=== PATIENT | male | born 1955 | race Caucasian/White ===

== ENCOUNTER 2019-03-21 21:05 | Emergency (ER) | payer MEDICARE, OTHER ==
[~2019-03-21] VITALS: Ht 170.2 cm; Wt 72.6 kg
[2019-03-21 21:24] VITALS: BP 146/90
[2019-03-21] MEDS ORDERED: ACETAMINOPHEN ES 500 MG TABLET ONE (21:49)
[2019-03-21] MEDS: ACETAMINOPHEN 325 MG TABLET PO ONE (21:52)
== END 2019-03-21 22:54 | disposition home or self-care (01) ==
LOC: ER 21:10
DX: M25.561 Pain in right knee (principal); M25.521 Pain in right elbow; M54.6 Pain in thoracic spine; I10 Essential (primary) hypertension; F17.200 Nicotine dependence, unspecified, uncomplicated; Y08.89XA Assault by other specified means, initial encounter; Y93.89 Activity, other specified; Y92.89 Other specified places as the place of occurrence of the external cause; Y99.8 Other external cause status
CPT/HCPCS: 72070-TC; 73080-TC; 73564-TC

== ENCOUNTER 2019-09-01 18:20 | Inpatient (IN) | payer MEDICARE, OTHER ==
[~2019-09-01] VITALS: Ht 170.2 cm; Wt 74.0 kg
--- NOTE | 2019-09-01 18:39 | NUR ---
patient bibra from home, c/o worsening sob x 3 days. On room air, breathing evenly and unlabored. connected to the monitor accordingly. Kept comfortable, will continue to monitor accordingly.
[2019-09-01 18:40] LABS: BASOPHILS # (AUTO) 0.1 /CMM (0.0-0.2); BASOPHILS % (AUTO) 0.7 % (0.0-2.0); EOSINOPHILS % (AUTO) 2.4 % (0.0-6.0); HEMATOCRIT 45 % (39-51); HEMOGLOBIN 15.4 g/dL (13.5-17.5); LYMPHOCYTES # (AUTO) 0.9 /CMM (0.8-4.8); LYMPHOCYTES % (AUTO) 10.9 % (20.0-44.0); MEAN CORPUSCULAR HGB CONC 34 g/dl (31.0-36.0); MEAN CORPUSCULAR VOLUME 92 fL (80-96); MONOCYTES # (AUTO) 0.9 /CMM (0.1-1.30); MONOCYTES % (AUTO) 10.4 % (2.0-12.0); NEUTROPHILS # (AUTO) 6.4 /CMM (1.8-8.9); NEUTROPHILS % (AUTO) 75.6 % (43.0-81.0); PLATELET COUNT (AUTO) 305 /CMM (150-450); WHITE BLOOD COUNT (AUTO) 8.5 K/uL (4.3-11.0)
--- NOTE | 2019-09-01 18:40 | NUR ---
blood drawned and sent to lab. IV access initiated.
--- NOTE | 2019-09-01 18:42 | NUR ---
radha at bedside for x-ray
[2019-09-01 18:50] LABS: CALCIUM, SERUM 8.7 mg/dL (8.5-10.1); CARBON DIOXIDE 26 mmol/L (21-32); CHLORIDE 106 mmol/L (98-107); CREATININE 1.2 mg/dL (0.6-1.3); GLUCOSE 130 mg/dL (74-106); POTASSIUM 3.7 mmol/L (3.5-5.1); SODIUM SERUM 140 mmol/L (136-145); UREA NITROGEN, BLOOD 15 mg/dL (7-18)
[2019-09-01 19:04] LABS: B-TYPE NATRIURETIC PEPTIDE 85 PG/ML (0-125)
--- NOTE | 2019-09-01 19:10 | NUR ---
report given to Tyler BENZ for humberto
--- NOTE | 2019-09-01 19:10 | NUR ---
TOOK OVER PT CARE. PT AAOX4. PLACED ON 2L NC SAT 98%. DENIES PAIN. RR EVEN AND UNLABORED. VSS.
--- NOTE | 2019-09-01 19:17 | NUR ---
MD AT BEDSIDE SPEAKING TO PT REGARDING STAYING IN THE HOSPITAL
--- NOTE | 2019-09-01 19:27 | NUR ---
MED LIST UPDATED.
[2019-09-01] MEDS ORDERED: LOSA50TA39 PO (19:31)
--- NOTE | 2019-09-01 19:50 | NUR ---
PT RESTING. PROVIDED WITH BLANKET.
--- NOTE | 2019-09-01 20:19 | NUR ---
Patient is resting comfortably in bed. Easily aroused. VSS.
[2019-09-01] MEDS ORDERED: ENOXAPARIN SODIUM 40 MG/0.4 ML DISP.SYRIN SQ SCH (20:30)
[2019-09-01] MEDS ORDERED: LOSARTAN POTASSIUM 50 MG TABLET PO SCH (20:30)
[2019-09-01] MEDS ORDERED: MAGNESIUM HYDROXIDE 30 ML UDC PO PRN (20:30)
[2019-09-01] MEDS ORDERED: ONDANSETRON HCL/PF 4 MG/2 ML VIAL IVP PRN (20:30)
[2019-09-01] MEDS ORDERED: Z GUARD REMEDY 2 OZ OINT TP PRN (20:30)
--- NOTE | 2019-09-01 20:46 | NUR ---
BED ASSIGNMENT 309
[2019-09-01] MEDS ORDERED: hydrALAZINE HCL IV 20 MG VIAL IV ONE (21:00)
--- NOTE | 2019-09-01 21:03 | NUR ---
REPORT GIVEN TO AZEB BENZ FOR ANISA
[2019-09-01] MEDS ORDERED: hydrALAZINE HCL IV 20 MG VIAL ONE (21:06)
--- NOTE | 2019-09-01 21:14 | NUR ---
PT BP 169/107 HR 81. MD AWARE.
--- NOTE | 2019-09-01 21:16 | NUR ---
PER MD, PT SHOULD BE TESTED FOR COVID. CALLED AZEB BENZ FOR UPDATE.
--- NOTE | 2019-09-01 21:26 | NUR ---
BED ASSIGNMENT CHANGED TO 117
--- NOTE | 2019-09-01 21:36 | NUR ---
REPORT GIVEN TO MOUNA BENZ FOR ANISA
--- NOTE | 2019-09-01 22:01 | NUR ---
PT TRANSFERED PER ACLS PROCOTOL
--- NOTE | 2019-09-01 22:05 | NUR ---
RN OPENING NOTE PT RECEIVED VIA GURNEY FROM ER COMPANIED BY 2 RNs UNDER ACLS PROTOCOL.PT A/A/O x4. VSS. IV LAC 18 G S/L, PATENT AND INTACT. SKIN INTACT NO KAUR, AMBULATORY. TELE MONITOR SHOWING SR IN 80s. ON 2 L O2 VIA NC , NO S/S OF SOB, BELONGINGS CHECKED. SAFETY MEASURE IN PLACE BED AT LOWEST POSITION, LOCKED, BAD ALARM ON, SIDE RAILS X2 UP, WILL CONTINUE TO MONITOR.
[2019-09-01 22:34] VITALS: BP 148/90
[2019-09-02] VITALS (8 sets, daily range): BP systolic 116–160; BP diastolic 54–95
--- NOTE | 2019-09-02 | NUR ---
The BP is 147/105 at this time. Patient seems calm with no shortness of breath but states to have difficulty speaking after getting up from bed. Will continue to monitor the BP.
[2019-09-02 00:07] LABS: C-REACTIVE PROTEIN 4.5 mg/dL (0.0-0.9)
[2019-09-02] MEDS: ENOXAPARIN SODIUM 40 MG/0.4 ML DISP.SYRIN SQ SCH ×2 (00:17→22:00)
--- NOTE | 2019-09-02 06:23 | NUR ---
RN CLOSING NOTE PT IS RESTING IN THE BED COMFORTABLY. THERE IS NO S/S OF DISTRESS. UNLABORED BREATHING ON 2 L O2 VIA NC.VSS. NO ACUTE CHANGE DURING MY SHIFT WILL ENDORSE TO INCOMING SHIFT FOR CONTINUITY OF CARE.
[2019-09-02 06:49] LABS: BASOPHILS # (AUTO) 0.1 /CMM (0.0-0.2); BASOPHILS % (AUTO) 0.6 % (0.0-2.0); EOSINOPHILS % (AUTO) 1.4 % (0.0-6.0); HEMATOCRIT 47 % (39-51); LYMPHOCYTES # (AUTO) 0.8 /CMM (0.8-4.8); LYMPHOCYTES % (AUTO) 6.5 % (20.0-44.0); MEAN CORPUSCULAR HGB CONC 34 g/dl (31.0-36.0); MEAN CORPUSCULAR VOLUME 92 fL (80-96); MONOCYTES % (AUTO) 8.2 % (2.0-12.0); NEUTROPHILS % (AUTO) 83.3 % (43.0-81.0); PLATELET COUNT (AUTO) 292 /CMM (150-450); RED BLOOD CELL COUNT(AUTO) 5.07 MIL/uL (4.5-6.0)
[2019-09-02 07:07] LABS: CALCIUM, SERUM 8.3 mg/dL (8.5-10.1); MAGNESIUM 2.1 mg/dL (1.8-2.4); PHOSPHORUS 2.7 mg/dL (2.5-4.9); POTASSIUM 3.7 mmol/L (3.5-5.1)
[2019-09-02] MEDS: NICOTINE PATCH (7MG) 7 MG PATCH.TD24 TD SCH ×2 (08:22→09:00)
[2019-09-02] MEDS: PANTOPRAZOLE 40 MG TABLET.DR PO SCH (08:22)
[2019-09-02] MEDS: ACETAMINOPHEN 325 MG TABLET PO PRN (09:21)
[2019-09-02] MEDS: CEFTRIAXONE 1 G in IV D5W 50 ML IV SCH (14:00)
[2019-09-02 15:27] LABS: THYROID STIMULATING HORMONE 2.819 uIU/mL (0.358-3.74)
--- NOTE | 2019-09-02 15:39 | NUR ---
RN TO ORDER LABS TO BE DRAWN AND WILL HOLD BLOOD THINNERS TO PERFORM THORACENTESIS ON 09/03/19
[2019-09-02] MEDS: DOCUSATE SODIUM 100 MG CAPSULE PO SCH (18:09)
--- NOTE | 2019-09-02 19:30 | NUR ---
RN OPENING NOTES The patient is resting in bed, A/O x4. Pt denies pain, no s/s of pain at this time. Per previous shift nurse, the patient has been having elevated BP, the patient is pending thoracentesis. The patient is able to ambulate to restroom. VS WNL at this time. Will continue to monitor for BP. All safety mechanism in place. Bed locked, in the lowest position, and call light within reach. Will continue to monitor.
--- NOTE | 2019-09-02 20:00 | NUR ---
The patient's abdomen is distended - pending thoracentesis. The patient denies pain at this time, no s/s of pain.
--- NOTE | 2019-09-02 20:38 | NUR ---
STAT PTT/ PT INR has been ordered before the thoracentesis takes place. Lovenox has been placed on hold throughout the shift.
--- NOTE | 2019-09-02 21:33 | NUR ---
INITIAL ECHO SHOWED EF 70%~ WITH LARGE PLEURAL EFFUSION. ADVISED RN OF PRELIMINARY RESULTS.
[2019-09-03] VITALS (7 sets, daily range): BP systolic 98–152; BP diastolic 70–96
[2019-09-03] MEDS: ACETAMINOPHEN 325 MG TABLET PO PRN ×3 (04:25→15:06)
--- NOTE | 2019-09-03 04:50 | NUR ---
Patient states to have difficulty breathing due to allergies. He sasy he feels his nose is congested. He exibits s/s of distress and shortness of breath. After replacing the NC and placing a simple Face MAsk and increasing the O2 8L, the patient seems more relax, and has no s/s of shortness of breath. Saturation is at 97%. Will inform the incoming nurse.
--- NOTE | 2019-09-03 06:27 | NUR ---
RN CLOSING NOTES The patient remains stable at this time. VS are WNL. SBP remains in the 140s/ and DBP Remains in the 90's. The pt has no s/s of distress at this time. denies pain, no s/s of pain. A/A x4. The patient is ambulatory. The abdomen remains enlarged to because of fluid accumulation, pending thoracentesis. LAC 18 G, flushing well. All safety mechanism in place at this time. Bed locked in the lowest position and call light within reach. Will endorse the next shift for continuity of care.
[2019-09-03 06:35] LABS: BASOPHILS % (AUTO) 0.2 % (0.0-2.0); EOSINOPHILS % (AUTO) 1.6 % (0.0-6.0); HEMATOCRIT 46 % (39-51); HEMOGLOBIN 15.2 g/dL (13.5-17.5); LYMPHOCYTES # (AUTO) 0.7 /CMM (0.8-4.8); MEAN CORPUSCULAR HGB CONC 33 g/dl (31.0-36.0); MEAN CORPUSCULAR VOLUME 92 fL (80-96); MONOCYTES # (AUTO) 1.1 /CMM (0.1-1.30); MONOCYTES % (AUTO) 9.1 % (2.0-12.0); NEUTROPHILS # (AUTO) 10.3 /CMM (1.8-8.9); NEUTROPHILS % (AUTO) 83.1 % (43.0-81.0); PLATELET COUNT (AUTO) 276 /CMM (150-450); RED BLOOD CELL COUNT(AUTO) 4.94 MIL/uL (4.5-6.0); WHITE BLOOD COUNT (AUTO) 12.4 K/uL (4.3-11.0)
[2019-09-03 06:37] LABS: CALCIUM, SERUM 8.4 mg/dL (8.5-10.1); CREATININE 0.9 mg/dL (0.6-1.3); MAGNESIUM 2.3 mg/dL (1.8-2.4); POTASSIUM 3.7 mmol/L (3.5-5.1)
--- NOTE | 2019-09-03 07:05 | NUR ---
RN NOTES RECEIVED PT ON BED, A/Ox4, ON 5L O2 FACE MASK, O2 SAT WNL, ON TELE SR HR IN 90'S , LAC IV SITE G 18 CLEAN, DRY AND INTACT, SR UP x3, CALL LIGHT WITHIN EASY REACH, CONTINUE TO MONITOR
[2019-09-03] MEDS: DOCUSATE SODIUM 100 MG CAPSULE PO SCH ×2 (08:15→16:10)
[2019-09-03] MEDS: PANTOPRAZOLE 40 MG TABLET.DR PO SCH (08:15)
[2019-09-03] MEDS: NICOTINE PATCH (7MG) 7 MG PATCH.TD24 TD SCH ×2 (08:15→08:18)
[2019-09-03] MEDS: CEFTRIAXONE 1 G in IV D5W 50 ML IV SCH (13:34)
--- NOTE | 2019-09-03 17:30 | NUR ---
RN NOTES LEFT CHEST THORACENTESIS DONE BY RADIOLOGY AT THE BEDSIDE, 1600 CC BLOODY TINGED PLURAL FLUID DRAINED AND SENT TO THE LAB PT TOLERATED WELL, PT STATED HE BREATHS EASIER . O2 SAT WNL , BANDAIDE TO LEFT SIDE OF THE CHEST CLEAN, DRY AND INTACT, CONTINUE TO MONITOR .
--- NOTE | 2019-09-03 18:26 | NUR ---
RN NOTES PT STABLE, NO DISTRESS NOTED, WILL ENDORSE TO METAL INSPECTOR NURSE FOR CONTINUITY OF CARE.
--- NOTE | 2019-09-03 19:30 | NUR ---
RN OPENING NOTES The patient is resting in bed, A/O x4. Pt denies pain, no s/s of pain at this time. The patient is able to ambulate to restroom. VS WNL at this time. Will continue to monitor for BP. All safety mechanism in place. Bed locked, in the lowest position, and call light within reach. Will continue to monitor
[2019-09-03] MEDS: ATORVASTATIN 10 MG TABLET PO SCH (22:14)
[2019-09-03] MEDS: ENOXAPARIN SODIUM 40 MG/0.4 ML DISP.SYRIN SQ SCH (22:18)
--- NOTE | 2019-09-03 23:30 | NUR ---
at 1999 hr vitals were entered incorrectly. At 2022 hr the correct set of vitals was entered.
[2019-09-04] VITALS: BP 143/96
[2019-09-04] MEDS: ACETAMINOPHEN 325 MG TABLET PO PRN (03:44)
[2019-09-04 04:00] VITALS: BP 144/84
[2019-09-04 06:32] LABS: BASOPHILS % (AUTO) 0.3 % (0.0-2.0); EOSINOPHILS % (AUTO) 2.8 % (0.0-6.0); HEMATOCRIT 46 % (39-51); HEMOGLOBIN 15.4 g/dL (13.5-17.5); LYMPHOCYTES % (AUTO) 9.2 % (20.0-44.0); MEAN CORPUSCULAR HGB CONC 34 g/dl (31.0-36.0); MEAN CORPUSCULAR VOLUME 92 fL (80-96); MONOCYTES # (AUTO) 1.2 /CMM (0.1-1.30); MONOCYTES % (AUTO) 11.5 % (2.0-12.0); NEUTROPHILS # (AUTO) 8.1 /CMM (1.8-8.9); NEUTROPHILS % (AUTO) 76.2 % (43.0-81.0); PLATELET COUNT (AUTO) 303 /CMM (150-450); RED BLOOD CELL COUNT(AUTO) 4.97 MIL/uL (4.5-6.0); WHITE BLOOD COUNT (AUTO) 10.7 K/uL (4.3-11.0)
--- NOTE | 2019-09-04 06:35 | NUR ---
RN CLOSING NOTES The patient is resting in bed, A/O x4. Pt denies pain, no s/s of pain at this time. The patient is able to ambulate to restroom. VS WNL at this time. All safety mechanism in place. Bed locked, in the lowest position, and call light within reach. Will endorse the next shift.
[2019-09-04 06:46] LABS: CALCIUM, SERUM 8.4 mg/dL (8.5-10.1); POTASSIUM 3.5 mmol/L (3.5-5.1)
--- NOTE | 2019-09-04 07:40 | NUR ---
RN OPENING NOTES: RECEIVED PATIENT RESTING IN BED COMFORTABLY. PATIENT IS A/O X 4. PT DENIES PAIN. ON 4.5 NC TOERATIGN WELL, NO RESPIRATORY DISTRESS NOTED. SATURATION AT 97 %. PT ON TELE READING SR @ 83 . PATIENT AMBULATES TO RESTROOM. PATIENT SAFETY MAINTAINED, CALL LIGHT WITHIN REACH, WILL CONTINUE TO MONITOR.
[2019-09-04] MEDS: PANTOPRAZOLE 40 MG TABLET.DR PO SCH (07:46)
[2019-09-04 08:00] VITALS: BP 134/72
[2019-09-04] MEDS: NICOTINE PATCH (7MG) 7 MG PATCH.TD24 TD SCH ×2 (09:00→09:48)
[2019-09-04] MEDS: DOCUSATE SODIUM 100 MG CAPSULE PO SCH ×2 (09:48→17:21)
[2019-09-04 12:00] VITALS: BP 126/74
[2019-09-04] MEDS: PSYLLIUM SEED 1 PKT PACKET PO SCH (12:35)
[2019-09-04] MEDS ORDERED: IV NS 0.9% 250 ML IV ONE (13:06)
[2019-09-04] MEDS ORDERED: IOHEXOL-300 100 ML VIAL IV ONE (13:06)
[2019-09-04] MEDS ORDERED: CT SWABBABLE VALVE TRANS SET 1 EA INFUS.SET MC ONE (13:06)
[2019-09-04] MEDS: CEFTRIAXONE 1 G in IV D5W 50 ML IV SCH (13:41)
[2019-09-04 16:00] VITALS: BP 140/80
--- NOTE | 2019-09-04 18:53 | NUR ---
RN CLOSING NOTES WILL ENDORSED PATIENT TO PM NURSE FOR CONTINUITY OF CARE. ALL PATIENT NEEDS MET, CALL LIGHT WITHIN REACH, PM NURSE WILL CONTINUE CARE
--- NOTE | 2019-09-04 19:30 | NUR ---
RN OPENING NOTE PT RECEIVED IN THE BED RESTING COMFORTABLY. PT IS A/A/O X4. NO S/S OF RESPIRATORY DISTRESS. PT IS ON 4 L VIA SIMPLE FACE MASK SATING 97%. PT HAS UNLABORED BREATHING. PT HAS L WRIST 20 G S/L FLUSHES WELL, PATENT AND DRESSING INTACT. PT ON TELE MONITOR SHOWING SR IN 80s. SAFETY MEASURES IN PLACE BED AT LOWEST POSITION, LOCKED, CALL LIGHT IN REACH, SIDE RAILS UP X2. WILL CONTINUE TO MONITOR.
[2019-09-04 20:00] VITALS: BP 152/97
[2019-09-04] MEDS: ENOXAPARIN SODIUM 40 MG/0.4 ML DISP.SYRIN SQ SCH (22:00)
[2019-09-04] MEDS: ATORVASTATIN 10 MG TABLET PO SCH (22:29)
--- NOTE | 2019-09-04 22:30 | NUR ---
RN NOTE LOVENOX NON ADMINISTERED D/T SCHEDULED THORACENTESIS ON 09/05/19.
[2019-09-05] VITALS (7 sets, daily range): BP systolic 126–148; BP diastolic 76–97
--- NOTE | 2019-09-05 06:44 | NUR ---
RN CLOSING NOT PT REMAINS STABLE DURING MY SHIFT. NO ACUTE CHANGES AND VSS.
--- NOTE | 2019-09-05 07:15 | NUR ---
RN OPENING NOTE Received patient asleep in bed calm and relaxed. On Oxygen mask 4L tolerating well no signs of distress. Patient is AO x4. Tele reading SR 80s. Has L Wrist #20 flushes well. Patient is for thoracentesis today. Safety measures reinforced. Call light within reach. Bed locked and on lowest position. Will cont to monitor.
[2019-09-05] MEDS: PANTOPRAZOLE 40 MG TABLET.DR PO SCH (07:49)
[2019-09-05] MEDS: DOCUSATE SODIUM 100 MG CAPSULE PO SCH ×2 (08:53→16:13)
[2019-09-05] MEDS: NICOTINE PATCH (7MG) 7 MG PATCH.TD24 TD SCH (08:54)
[2019-09-05] MEDS: PSYLLIUM SEED 1 PKT PACKET PO SCH (08:54)
--- NOTE | 2019-09-05 09:18 | NUR ---
PT REQ TO SPEAK TO HIS MD REG HIS OVERALL COND. INFORM MD FOR TODAY BRYANNA.
--- NOTE | 2019-09-05 09:31 | NUR ---
PT REFUSED NICOTINE PATCH. MD SHANKS NICOTINE PATCH.
--- NOTE | 2019-09-05 10:45 | NUR ---
THORACENTESIS DONE REMOVED 2L COLOR RED LIQUID
[2019-09-05] MEDS: CEFTRIAXONE 1 G in IV D5W 50 ML IV SCH (13:46)
[2019-09-05] MEDS ORDERED: SALINE NASAL SPRAY 0.65% 1 BOTTLE BOTTLE NS PRN (17:00)
--- NOTE | 2019-09-05 19:01 | NUR ---
RN CLOSING NOTE Patient in bed no signs of distress. On O2 mask 4L tolerating well. All due meds given. Vital signs within normal limits. Cont on ATB therapy no signs of adverse medication. No c/o chest pain or SOB. All needs met. Kept comfortable. Call light within reach. Bed locked and on lowest position. Will endorse to police shift commander nurse for humberto.
--- NOTE | 2019-09-05 19:30 | NUR ---
RN OPENING NOTE RECEIVED PATIENT IN BED RESTING VERBALLY RESPONSIVE ABLE TO MAKE NEEDS KNOWN,ALERT ORIENTED X4 BREATHING IS EVEN AND UNLABORED NO SOB NOT ACUTE DISTRESS NOTED, AT THIS TIME,PATIENT IS ON 4L OXYGEN VIA MASK O2 93%,CONTINENT TO BOWEL AND BLADDER, CONTINUE TO MONITOR.
[2019-09-05] MEDS: ATORVASTATIN 10 MG TABLET PO SCH (21:31)
[2019-09-05] MEDS: ENOXAPARIN SODIUM 40 MG/0.4 ML DISP.SYRIN SQ SCH ×2 (22:00→22:49)
--- NOTE | 2019-09-05 22:00 | NUR ---
PATIENT HAS ENOXAPARIN 40MG SUBCUTANEOUS INJECTION,AT 2200.HE REFUSED TO ADMINISTER,AFTER 3 TIMES ATTEMPTED EXPLAINED RISK AND BENEFIT,RESPECT PATIENT RIGHT,NOT ADMINISTERED.
[2019-09-06] VITALS: BP 147/89
[2019-09-06 00:19] VITALS: BP 147/89
[2019-09-06 04:00] VITALS: BP 148/88
--- NOTE | 2019-09-06 06:55 | NUR ---
RN CLOSING NOTE RESIDENT REMAINS IN STABLE CONDITION,ALERT ORIENTED VERBALLY RESPONSIVE NO SOB NOT ACUTE DISTRESS NOTED,BREATHING IS EVEN AND UNLABORED HE IS ON 4L VIA MASK,ON TELE MONITORING ,ALL DUE MEDS GIVEN MD ORDERED,EXCEPT LOVENOX,KEPT CLEAN AND DRY ALL THE TIME,ALL NEEDS MET,ENDORSE TO MORNING SHIFT FOR CONTINUATION OF CARE.
--- NOTE | 2019-09-06 07:30 | NUR ---
OPENING NOTES Received pt at bed, A/Ox4, ambulatory, on O2 flow via NC tolerating well, no s/sx of distress,skin is intact, IV on L Wrist G20 noted, patent and intact, Monitoring pt for s/sx of chest pain, and unstable vital signs. Safety measures are implemented,call light within reach, bed in lowest position , will cont to monitor
[2019-09-06 08:00] VITALS: BP 152/87
[2019-09-06] MEDS: PANTOPRAZOLE 40 MG TABLET.DR PO SCH (08:06)
[2019-09-06] MEDS: DOCUSATE SODIUM 100 MG CAPSULE PO SCH ×2 (08:39→18:08)
[2019-09-06] MEDS: PSYLLIUM SEED 1 PKT PACKET PO SCH (08:39)
[2019-09-06] MEDS: CEFTRIAXONE 1 G in IV D5W 50 ML IV SCH (14:30)
[2019-09-06 16:00] VITALS: BP 127/86
--- NOTE | 2019-09-06 18:54 | NUR ---
RN CLOSING NOTES PT REMAINS IN THE BED, WATCHING TV, REMAINING ON 4L OF O2 MASK, SATURATION IS 100%, TOLERATING WELL, COMFORT NEED MET, SAFETY MEASURES IMPLEMENTED, CALL LIGHT WITHIN REACH, BED IN LOWEST POSITION, WILL ENDORSE TO PM SHIFT RN
[2019-09-06 20:00] VITALS: BP 131/79
[2019-09-06] MEDS: ACETAMINOPHEN 325 MG TABLET PO PRN (20:23)
[2019-09-06] MEDS: ATORVASTATIN 10 MG TABLET PO SCH (21:19)
[2019-09-06] MEDS: ENOXAPARIN SODIUM 40 MG/0.4 ML DISP.SYRIN SQ SCH (21:22)
--- NOTE | 2019-09-06 21:22 | NUR ---
RN NOTES, PATIENT ENDORSED FROM DEMAR MEHTA FOR CONTINUATION OF CARE, PATIENT A/O AWAKE, NO SOB/ACUTE DISTRESS NOTED, WILL CONTINUE TO MONITOR CLOSELY. Addendum: 09/07/19 at 0630 by RAMY WHITEHEAD RN CORRECT TIME [id number]
--- NOTE | 2019-09-06 22:21 | NUR ---
RN NOTE ENDORSED TO DEMAR MCCANN FOR CONTINUATION OF CARE.
[2019-09-07] MEDS: MAG HYDROX/AL HYDROX/SIMETH 30 ML UDC PO PRN (02:38)
[2019-09-07 04:00] VITALS: BP_SYST 143; BP_SYST 144; BP_DIAS 89
[2019-09-07 06:12] LABS: BASOPHILS # (AUTO) 0.1 /CMM (0.0-0.2); BASOPHILS % (AUTO) 0.8 % (0.0-2.0); EOSINOPHILS % (AUTO) 2.6 % (0.0-6.0); HEMATOCRIT 47 % (39-51); HEMOGLOBIN 15.6 g/dL (13.5-17.5); LYMPHOCYTES % (AUTO) 9.7 % (20.0-44.0); MEAN CORPUSCULAR HGB CONC 34 g/dl (31.0-36.0); MEAN CORPUSCULAR VOLUME 92 fL (80-96); MONOCYTES # (AUTO) 1.2 /CMM (0.1-1.30); MONOCYTES % (AUTO) 12.2 % (2.0-12.0); NEUTROPHILS # (AUTO) 7.6 /CMM (1.8-8.9); NEUTROPHILS % (AUTO) 74.7 % (43.0-81.0); PLATELET COUNT (AUTO) 340 /CMM (150-450); RED BLOOD CELL COUNT(AUTO) 5.06 MIL/uL (4.5-6.0); WHITE BLOOD COUNT (AUTO) 10.2 K/uL (4.3-11.0)
--- NOTE | 2019-09-07 06:30 | NUR ---
RN NOTES, NO SIGNIFICANT CHANGE IN CONDITION DURING THE NIGHT, ON SIMPLE MASK 5LPM WIT OPTIMAL O2 SAT LEVEL, NO SOB/ACUTE DISTRESS NOTED, WILL ENDORSED CONTINUITY OF CARE TO ONCOMING NURSE.
--- NOTE | 2019-09-07 06:32 | NUR ---
RN NOTES, NO SIGNIFICANT CHANGE IN CONDITION DURING THE NIGHT, ON SIMPLE 2LPM NC WIT OPTIMAL O2 SAT LEVEL, NO SOB/ACUTE DISTRESS NOTED, BILATERAL RESTRAINS IN PLACED, NO CIRCULATION COMPROMISED AND NO ABNORMALITY AT SITE, FREQUENT CHECKS PROTOCOL DONE, BED LOCKED AND LOW POSITION, ALL NEEDS PROVIDED, WILL ENDORSED CONTINUITY OF CARE TO ONCOMING NURSE.
[2019-09-07 06:42] LABS: CALCIUM, SERUM 8.6 mg/dL (8.5-10.1); CREATININE 1.1 mg/dL (0.6-1.3); POTASSIUM 4.5 mmol/L (3.5-5.1)
--- NOTE | 2019-09-07 07:15 | NUR ---
RN OPENING NOTE: Received patient in bed. Awake, alert and oriented x4. Able to make needs known, On face mask @ 5lpm and being tolerated well. NO SOB and not in respiratory distress. No complaints of pain and none noted. IV site clean, dry, patent and intact. Call light in reach. Bed locked, low and at semi-martins's position. Side rails up x3. Safety ensured and observed. Will continue to monitor.
[2019-09-07 08:00] VITALS: BP 135/89
[2019-09-07] MEDS: PSYLLIUM SEED 1 PKT PACKET PO SCH ×2 (09:00→09:26)
[2019-09-07] MEDS: PANTOPRAZOLE 40 MG TABLET.DR PO SCH (09:26)
[2019-09-07] MEDS: DOCUSATE SODIUM 100 MG CAPSULE PO SCH ×2 (09:26→18:29)
[2019-09-07] MEDS ORDERED: TAMS-12 PO (10:38)
[2019-09-07 12:00] VITALS: BP 136/85
[2019-09-07] MEDS: CEFTRIAXONE 1 G in IV D5W 50 ML IV SCH (14:10)
[2019-09-07 16:00] VITALS: BP 149/92
[2019-09-07] MEDS ORDERED: [UNRECOGNIZED DRUG - OTHER] PO (16:02)
[2019-09-07] MEDS: ACETAMINOPHEN 325 MG TABLET PO PRN (18:28)
[2019-09-07] MEDS: [UNRECOGNIZED DRUG - OTHER] PO SCH (18:28)
--- NOTE | 2019-09-07 19:13 | NUR ---
RN CLOSING NOTE No acute changes noted on shift. Patient in remains in bed. Awake, alert and oriented x4. Able to make needs known, On face mask @ 5lpm and being tolerated well. NO SOB and not in respiratory distress. No complaints of pain and none noted. IV site clean, dry, patent and intact. Was seen by Aparna Hector DNP and was able to communicate with Dr. Familia Donahue via phone call with new orders. Will inform oncoming shift about procedure scheduled for tomorrow. Call light in reach. Bed locked, low and at semi-martins's position. Side rails up x3. Safety ensured and observed. Due medications given. Treatment given as ordered.
[2019-09-07 20:00] VITALS: BP_SYST 120; BP_SYST 132; BP_DIAS 59; BP_DIAS 80
[2019-09-07] MEDS: ATORVASTATIN 10 MG TABLET PO SCH (21:18)
[2019-09-07] MEDS: ENOXAPARIN SODIUM 40 MG/0.4 ML DISP.SYRIN SQ SCH (21:18)
[2019-09-07] MEDS: TAMSULOSIN 0.4 MG CAP.SR.24H PO SCH (21:19)
[2019-09-08 06:26] LABS: BASOPHILS # (AUTO) 0.1 /CMM (0.0-0.2); BASOPHILS % (AUTO) 0.9 % (0.0-2.0); HEMATOCRIT 46 % (39-51); HEMOGLOBIN 15.3 g/dL (13.5-17.5); LYMPHOCYTES % (AUTO) 9.9 % (20.0-44.0); MEAN CORPUSCULAR HGB CONC 34 g/dl (31.0-36.0); MEAN CORPUSCULAR VOLUME 92 fL (80-96); MONOCYTES # (AUTO) 1.3 /CMM (0.1-1.30); MONOCYTES % (AUTO) 13.5 % (2.0-12.0); NEUTROPHILS # (AUTO) 7.1 /CMM (1.8-8.9); NEUTROPHILS % (AUTO) 72.7 % (43.0-81.0); PLATELET COUNT (AUTO) 346 /CMM (150-450); RED BLOOD CELL COUNT(AUTO) 4.97 MIL/uL (4.5-6.0); WHITE BLOOD COUNT (AUTO) 9.8 K/uL (4.3-11.0)
[2019-09-08 07:09] LABS: ALBUMIN 2.3 g/dL (3.4-5.0); BILIRUBIN,TOTAL 0.4 mg/dL (0.2-1.0); CALCIUM, SERUM 8.6 mg/dL (8.5-10.1); CREATININE 1.2 mg/dL (0.6-1.3); TOTAL PROTEIN, SERUM 6.6 g/dL (6.4-8.2)
[2019-09-08] MEDS: PANTOPRAZOLE 40 MG TABLET.DR PO SCH (07:30)
--- NOTE | 2019-09-08 07:30 | NUR ---
RN OPENING NOTE Patient is resting in bed, A/O x4, showing no signs of acute distress or SOB, saturating >95% on 5L simple mask. Patient has no complaints of pain at this time. IV line in the left wrist #20g is clean and intact s/l. Bed is in lowest position, side rails x3 in upright position, call light is within reach. Fall safety and aspiration precautions enforced. Will continue with plan of care.
[2019-09-08 08:00] VITALS: BP 125/85
[2019-09-08] MEDS: DOCUSATE SODIUM 100 MG CAPSULE PO SCH ×2 (08:15→17:24)
[2019-09-08] MEDS: PSYLLIUM SEED 1 PKT PACKET PO SCH (08:15)
[2019-09-08] MEDS: [UNRECOGNIZED DRUG - OTHER] PO SCH ×3 (08:15→17:24)
--- NOTE | 2019-09-08 09:30 | NUR ---
spoke to (radiologist) he will can back before doing exam [phone]
[2019-09-08 10:12] VITALS: BP 125/85
--- NOTE | 2019-09-08 10:57 | NUR ---
RN NOTE Ok per Aparna Hector N.P for patient to eat. She spoke to Radiologist and CT biopsy will be done tomorrow in AM. Patient is to be NPO after midnight.
--- NOTE | 2019-09-08 11:41 | NUR ---
RN NOTE Patient transferred to 204. Bedside report given to Italia BENZ for ANISA.
--- NOTE | 2019-09-08 11:50 | NUR ---
rn notes called for psych consultation dr hogan per hospitalist order, patient was complaining of depression, anxiety.
--- NOTE | 2019-09-08 11:50 | NUR ---
rn notes Patient transferred from [facility], report yaritza Lagos RN. patient a/o x3, refused pain, on mask 5L , was complaining of cough. patient ambulating to the bathroom, iv access on left wrist intact. patient signed consent for tomorrow prescribed CT guided left upper lungs biopsy. call light within to reach. continued monitoring.
[2019-09-08] MEDS: CEFTRIAXONE 1 G in IV D5W 50 ML IV SCH (13:56)
[2019-09-08 16:00] VITALS: BP 137/98
--- NOTE | 2019-09-08 18:00 | NUR ---
RN NOTES PATIENT STABLE, TOLERATED DINNER WELL, ADMINISTERED SCHEDULED MEDICATION, PATIENT REFUSED PAIN, ON MASK 5L. CALL LIGHT WITHIN TO REACH,. ENDORSED ONCOMING NURSE FOLLOW PLAN OF CARE.
--- NOTE | 2019-09-08 19:40 | NUR ---
MS RN RECEIVE PT IN BED AWAKE A/O X 3 STABLE, NO S/S OF DISTRESS, SAFETY MEASURES AT ALL TIMES. WILL CONT TO MONITOR
[2019-09-08 20:00] VITALS: BP 148/99
[2019-09-08] MEDS: MAG HYDROX/AL HYDROX/SIMETH 30 ML UDC PO PRN (21:37)
[2019-09-08] MEDS: ACETAMINOPHEN 325 MG TABLET PO PRN (21:37)
[2019-09-08] MEDS: ATORVASTATIN 10 MG TABLET PO SCH ×2 (21:38→21:47)
[2019-09-08] MEDS: ENOXAPARIN SODIUM 40 MG/0.4 ML DISP.SYRIN SQ SCH (21:38)
[2019-09-08] MEDS: TAMSULOSIN 0.4 MG CAP.SR.24H PO SCH (21:41)
--- NOTE | 2019-09-08 22:08 | NUR ---
Ms rn Patient refused lovenox 40 mg SQ and lipitor 20 mg despite explaining risks and benefits offered 3 times pt refused at this time
[2019-09-08] MEDS: GUAIFENESIN/D-METHORPHAN HB 5 ML UDC PO PRN (23:05)
--- NOTE | 2019-09-08 23:05 | NUR ---
MS RN PT REQUEST TO HAVE COUGH MED ARTEM Barragan CLIN NURSE SPEC SPOKE TO ORDERED ROBITUSSIN DM 5ML Q6HR PRN READ BACK AND VERIFIED ORDER NOTED AND CARRIED OUT
--- NOTE | 2019-09-09 06:00 | NUR ---
MS RN SLEPT WELL, AFEBRILE. NO S/S OF DISTRESS. ALL NEEDS ATTENDED AND ANTICIPATED, KEPT CLEAN, DRY AND COMFORTABLE. AM CARE RENDERED,SAFETY MEASURES AT ALL TIMES. WILL ENDORSE TO NEXT SHIFT.
[2019-09-09] MEDS: [UNRECOGNIZED DRUG - OTHER] PO SCH ×3 (07:48→17:36)
[2019-09-09] MEDS: DOCUSATE SODIUM 100 MG CAPSULE PO SCH ×2 (07:48→17:35)
[2019-09-09] MEDS: PANTOPRAZOLE 40 MG TABLET.DR PO SCH (07:48)
[2019-09-09] MEDS: PSYLLIUM SEED 1 PKT PACKET PO SCH (07:48)
[2019-09-09 08:00] VITALS: BP 132/90
--- NOTE | 2019-09-09 08:00 | NUR ---
RN NOTES RECEIVED PATIENT IN THE BED A/O X3, NO ACUTE RESPIRATORY DISTRESS, PATIENT NPO SCHEDULED CT GUIDED NEEDLE BIOPSY. PATIENT AMBULATORY SELF CARE.
--- NOTE | 2019-09-09 10:00 | NUR ---
RN NOTES PATIENT STABLE, NPO, BUDGET RECORD CLERK AT THIS TIME FOR CT GUIDED BIOPSY LEFT UPPER LOBE.
[2019-09-09] MEDS ORDERED: NALOXONE PREFILLED SYRINGE 2 MG/2 ML SYRINGE IV ONE (10:30)
[2019-09-09] MEDS ORDERED: FENTANYL PF 250MCG/5ML AMPUL IV ONE (10:30)
[2019-09-09] MEDS ORDERED: MIDAZOLAM HCL 5MG/ML VIAL 25 MG/5 ML VIAL IV ONE (10:30)
[2019-09-09 12:31] VITALS: BP 122/82
--- NOTE | 2019-09-09 12:31 | NUR ---
RN NOTES PATIENT BACK AT THIS TIME FROM PROCEDURE, AND THORACENTESIS DONE. PATIENT A/O X3, WAS COMPLAINING OF PAIN LEFT FLANK AREA, AND UPPER CHEST 5/10 PER PAIN SCALE, AND ASKING TYLENOL , V/S TAKEN BP-122/82, P-78, O2-97 ROOM AIR. PROCEDURE SIDE DRESSING INTACT, NO LEAKAGE NOTED. CALL LIGHT WITHIN TO REACH, CONTINUED MONITORING.
[2019-09-09] MEDS: ACETAMINOPHEN 325 MG TABLET PO PRN (13:00)
--- NOTE | 2019-09-09 13:00 | NUR ---
RN NOTES ADMINISTERED TYLENOL 650 MG PO PRN, AND ALSO PATIENT TALKING BY PSYCHIATRIST Dr HALEY HIGGINS .
[2019-09-09] MEDS: SERTRALINE HCL 25 MG TABLET PO SCH (14:20)
[2019-09-09] MEDS: CEFTRIAXONE 1 G in IV D5W 50 ML IV SCH (14:44)
--- NOTE | 2019-09-09 14:53 | NUR ---
RN NOTES PATIENT IN THE BED TRYING TO REST, MEDICATION WERE ADMINISTERED FOR PAIN EFFECTIVE, INFUSING ROCEPHIN 100 ML/HR, ON LEFT WRIST INTACT. CONTINUED MONITORING.
--- NOTE | 2019-09-09 18:30 | NUR ---
RN NOTES PATIENT STABLE, TOLERATED DINNER WELL, STABLE, REFUSED PAIN AT THIS TIME. PATIENT SELF CARE. MED COMPLIANT. CALL LIGHT WITHIN TO REACH, ENDORSED ONCOMING NURSE FOLLOW PLAN OF CARE.
--- NOTE | 2019-09-09 19:23 | NUR ---
MS RN RECEIVE PT IN BED AWAKE WATCHING TV A/O X 3 STABLE, NO S/S OF DISTRESS, SAFETY MEASURES AT ALL TIMES. WILL CONT TO MONITOR
[2019-09-09 20:00] VITALS: BP 133/80
[2019-09-09] MEDS: TAMSULOSIN 0.4 MG CAP.SR.24H PO SCH (21:23)
[2019-09-09] MEDS: ATORVASTATIN 10 MG TABLET PO SCH (21:24)
[2019-09-09] MEDS: ENOXAPARIN SODIUM 40 MG/0.4 ML DISP.SYRIN SQ SCH (21:24)
--- NOTE | 2019-09-09 23:00 | NUR ---
Ms rn Patient refused lovenox 40 mg SQ and lipitor 20 mg despite explaining risks and benefits offered 3 times pt refused at this time
[2019-09-10] MEDS: GUAIFENESIN/D-METHORPHAN HB 5 ML UDC PO PRN ×2 (03:37→22:43)
--- NOTE | 2019-09-10 05:32 | NUR ---
MS RN NO SIGNIFICANT CHANGES, NO C/O OF PAIN, NEEDS ATTENDED AND ANTICIPATED, KEPT CLEAN, DRY AND COMFORTABLE. SAFETY MEASURES AT ALL TIMES. WILL ENDORSE TO NEXT SHIFT.
--- NOTE | 2019-09-10 07:30 | NUR ---
RN OPENING NOTES RECEIVED PATIENT RESTING IN BED. A/OX4. NOT IN ANY FORM OF DISTRESS. NO SOB. DENIED PAIN OR DISCOMFORT AT THIS TIME. IV ACCESS INTACT AND PATENT. KEPT PATIENT SAFE AND COMFORTABLE. BED IN LOW/LOCKED POSITION. SIDERAILS UPX2, CALL LIGHT IN REACH. WILL CONT TO MONIOTR ACCORDINGLY
[2019-09-10 08:00] VITALS: BP 142/80
[2019-09-10] MEDS: PANTOPRAZOLE 40 MG TABLET.DR PO SCH (08:37)
[2019-09-10] MEDS: DOCUSATE SODIUM 100 MG CAPSULE PO SCH ×2 (08:37→18:02)
[2019-09-10] MEDS: [UNRECOGNIZED DRUG - OTHER] PO SCH ×3 (08:37→18:02)
[2019-09-10] MEDS: SERTRALINE HCL 25 MG TABLET PO SCH (08:37)
[2019-09-10] MEDS: PSYLLIUM SEED 1 PKT PACKET PO SCH (08:41)
[2019-09-10] MEDS ORDERED: HYDROCODONE/APAP 5/325MG 1 EACH TABLET PO PRN (12:00)
[2019-09-10] MEDS: CEFTRIAXONE 1 G in IV D5W 50 ML IV SCH ×2 (13:13→15:46)
[2019-09-10 16:00] VITALS: BP 125/82
--- NOTE | 2019-09-10 19:30 | NUR ---
MS RN RECEIVE PT IN BED AWAKE A/O X 3 AND NOT IN DISTRESS, NO COMPLAIN OF PAIN, SAFETY MEASURES AT ALL TIMES. WILL CONT TO MONITOR
--- NOTE | 2019-09-10 19:36 | NUR ---
RN CLOSING NOTES PATIENT IN STABLE CONDITION. ALL NEEDS ATTENDED AND PROVIDED. ALL DUE MEDS GIVEN ORDERED. ASSISTED PATIENT WITH ADLS. KEPT PATIENT SAFE AND COMFORTABLE. BED IN LOW/LOCKED POSITION. SIDERAILS UPX2, CALL LIGHT IN REACH. ENDORSED TO NIGHT RN FOR ANISA.
[2019-09-10 20:00] VITALS: BP 133/86
[2019-09-10] MEDS: ACETAMINOPHEN 325 MG TABLET PO PRN (21:22)
[2019-09-10] MEDS: MAG HYDROX/AL HYDROX/SIMETH 30 ML UDC PO PRN (21:23)
[2019-09-10] MEDS: TAMSULOSIN 0.4 MG CAP.SR.24H PO SCH (21:23)
[2019-09-10] MEDS: ATORVASTATIN 10 MG TABLET PO SCH (21:54)
[2019-09-10] MEDS: ENOXAPARIN SODIUM 40 MG/0.4 ML DISP.SYRIN SQ SCH (21:54)
--- NOTE | 2019-09-10 22:00 | NUR ---
Ms rn Patient refused lovenox 40 mg SQ and lipitor 20 mg pt verbalized " i dont need it". despite explaining risks and benefits offered 3 times pt refused at this time
--- NOTE | 2019-09-11 05:27 | NUR ---
MS RN PT MONITORED ACCORDINGLY, STABLE, O2 SAT WNL. NO SOB, NEEDS ATTENDED AND ANTICIPATED, KEPT CLEAN, DRY AND COMFORTABLE. SAFETY MEASURES AT ALL TIMES. WILL ENDORSE TO NEXT SHIFT.
[2019-09-11 07:06] LABS: BASOPHILS # (AUTO) 0.1 /CMM (0.0-0.2); BASOPHILS % (AUTO) 0.9 % (0.0-2.0); EOSINOPHILS % (AUTO) 2.4 % (0.0-6.0); HEMATOCRIT 47 % (39-51); LYMPHOCYTES # (AUTO) 0.8 /CMM (0.8-4.8); LYMPHOCYTES % (AUTO) 9.5 % (20.0-44.0); MEAN CORPUSCULAR HGB CONC 34 g/dl (31.0-36.0); MEAN CORPUSCULAR VOLUME 91 fL (80-96); MONOCYTES # (AUTO) 0.9 /CMM (0.1-1.30); MONOCYTES % (AUTO) 10.1 % (2.0-12.0); NEUTROPHILS # (AUTO) 6.7 /CMM (1.8-8.9); NEUTROPHILS % (AUTO) 77.1 % (43.0-81.0); PLATELET COUNT (AUTO) 395 /CMM (150-450); WHITE BLOOD COUNT (AUTO) 8.8 K/uL (4.3-11.0)
[2019-09-11 08:00] VITALS: BP 139/90
--- NOTE | 2019-09-11 08:00 | NUR ---
RN NOTES RECEIVED PATIENT IN THE BED AWAKE A/O X3. PATIENT ON MASK 5L, NO ACUTE RESPIRATORY DISTRESS, NO SOB AT THIS TIME, V/S STABLE, ADMINISTERED SCHEDULED MEDICATION. IV ACCESS ON RIGHT FA INTACT. PATIENT CONTINENT USING BATHROOM, CALL LIGHT WITHIN TO REACH. CONTINUED MONITORING.
[2019-09-11 08:12] VITALS: BP 139/90
[2019-09-11] MEDS: DOCUSATE SODIUM 100 MG CAPSULE PO SCH ×2 (08:58→17:01)
[2019-09-11] MEDS: SERTRALINE HCL 25 MG TABLET PO SCH (08:58)
[2019-09-11] MEDS: [UNRECOGNIZED DRUG - OTHER] PO SCH ×3 (08:58→17:01)
[2019-09-11] MEDS: PSYLLIUM SEED 1 PKT PACKET PO SCH (09:00)
[2019-09-11] MEDS: PANTOPRAZOLE 40 MG TABLET.DR PO SCH (09:01)
[2019-09-11] MEDS: CEFTRIAXONE 1 G in IV D5W 50 ML IV SCH (13:33)
--- NOTE | 2019-09-11 13:44 | NUR ---
RN NOTES STARTED ROCEPHIN 100 ML/HR INFUSION AT THIS TIME ON LEFT FA INTACT, PATIENT STABLE, REFUSED PAIN, ON MASK 5L. ADMINISTERED SCHEDULED MEDICATION, SEEN HOSPITALIST, NO NEW ORDER. CONTINUED MONITORING.
--- NOTE | 2019-09-11 15:00 | NUR ---
RN NOTES PSYCHIATRIST Dr DE LEON TELEMEDICINE WITH THE PATIENT AT THIS TIME, FOR FOLLOW UP.
[2019-09-11 16:13] VITALS: BP 148/69
--- NOTE | 2019-09-11 18:30 | NUR ---
RN NOTES PATIENT STABLE, REFUSED PAIN, IN LASE MINUTE IV GET PULLED OUT BU ACCIDENT. PATIENT REFUSED PAIN, STABLE. CALL LIGHT WITHIN TO REACH. ENDORSED ONCOMING NURSE FOLLOW PLAN OF CARE.
--- NOTE | 2019-09-11 20:17 | NUR ---
RECEIVED IN BED ALERT AND ORIENTATED SPEECH CLEAR VERBALIZING HIS NEEDS NO NOTED SOB
[2019-09-11] MEDS: ENOXAPARIN SODIUM 40 MG/0.4 ML DISP.SYRIN SQ SCH ×3 (21:19→21:31)
[2019-09-11] MEDS: TAMSULOSIN 0.4 MG CAP.SR.24H PO SCH (21:20)
[2019-09-11] MEDS: ATORVASTATIN 10 MG TABLET PO SCH (21:20)
[2019-09-11 21:21] VITALS: BP 137/84
--- NOTE | 2019-09-12 04:51 | NUR ---
ENDING NOTES: SLEPT THRU THE SHIFT. HOB UP 30% MASK ON SATS 96% ON 4 - 5 LITERS. AMBULATES TO THE BATHROOM NO NOTED SOB. NO C/O THIS 12 HOURS BED ALARM ON FOR SAFETY
--- NOTE | 2019-09-12 07:35 | NUR ---
RN NOTES RECEIVED PATIENT IN THE BED RESTING COMFORTABLY IN MODERATE HIGH BACK REST. A/O X3. PATIENT ON MASK 4-5L, NO ACUTE RESPIRATORY DISTRESS NOTED AT THIS TIME, IV ACCESS ON RIGHT HAND, INTACT AND PATENT, SL. SAFETY MEASURES IN PLACE, BED IN LOWEST LOCKED POSITION WITH SIDE RAILS UP X2. CALL LIGHT WITHIN REACH. WILL CONTINUE TO MONITOR.
[2019-09-12 08:00] VITALS: BP 144/80
[2019-09-12] MEDS: [UNRECOGNIZED DRUG - OTHER] PO SCH ×3 (08:43→16:33)
[2019-09-12] MEDS: SERTRALINE HCL 25 MG TABLET PO SCH (08:44)
[2019-09-12] MEDS: PANTOPRAZOLE 40 MG TABLET.DR PO SCH (08:44)
[2019-09-12] MEDS: PSYLLIUM SEED 1 PKT PACKET PO SCH ×2 (08:44→08:51)
[2019-09-12] MEDS: DOCUSATE SODIUM 100 MG CAPSULE PO SCH ×2 (08:44→16:33)
[2019-09-12] MEDS: CEFTRIAXONE 1 G in IV D5W 50 ML IV SCH (13:35)
[2019-09-12 16:00] VITALS: BP 124/76
--- NOTE | 2019-09-12 19:15 | NUR ---
RN NOTES PATIENT IN THE BED RESTING COMFORTABLY IN MODERATE HIGH BACK REST. A/O X3. PATIENT ON MASK 4-5L, NO ACUTE RESPIRATORY DISTRESS NOTED THROUGHOUT THE SHIFT, IV ACCESS ON RIGHT HAND, INTACT AND PATENT, SL. SAFETY MEASURES IN PLACE, BED IN LOWEST LOCKED POSITION WITH SIDE RAILS UP X2. CALL LIGHT WITHIN REACH. WILL ENDORSE TO REMOTELY OPERATED VEHICLE NURSE FOR ANISA.
--- NOTE | 2019-09-12 19:45 | NUR ---
MS RN NOTES RECEIVED PATIENT RESTING IN BED COMFORTABLY; A/OX4; PATIENT ON 4LPM VIA SIMPLE MASK, TOLERATING WELL; NO SOB NOTED AT THIS TIME; BREATHING EVEN AND UNLABORED; L HAND # 20 INTACT AND PATENT, FLUSHING WELL; NO S/S OF REDNESS OR INFILTRATION NOTED; PATIENT ABLE TO MAKE NEEDS KNOWN; SAFETY PRECAUTIONS IMPLEMENTED; BED LOCKED IN LOWEST POSITION; SIDE RAILS X2; CALL LIGHT WITHIN EASY REACH; WILL CONT TO MONITOR
[2019-09-12 20:00] VITALS: BP 144/81
[2019-09-12] MEDS: ATORVASTATIN 10 MG TABLET PO SCH (21:15)
[2019-09-12] MEDS: TAMSULOSIN 0.4 MG CAP.SR.24H PO SCH (21:15)
--- NOTE | 2019-09-12 21:21 | NUR ---
MS RN NOTES PATIENT HAS BEEN REFUSING SCHEDULED LOVENOX; PATIENT VERBALIZED HE FELT HE DID NOT NEED THE ORDER BECAUSE HE IS ABLE TO AMBULATE ON HIS OWN; PATIENT SAYS HE WALKS REGULARLY TO THE RESTROOM AND IS ABLE TO CHANGE POSITION IN THE BED ON HIS OWN; PATIENT WAS EDUCATED ON RISKS AND BENEFITS; PATIENT STILL REFUSING; PATIENT SAYS, "MAYBE I WILL GIVE IT A TRY TOMORROW". WILL CONT TO MONITOR
[2019-09-12] MEDS: ENOXAPARIN SODIUM 40 MG/0.4 ML DISP.SYRIN SQ SCH (22:00)
--- NOTE | 2019-09-13 06:23 | NUR ---
MS RN CLOSING NOTES PATIENT RESTING IN BED COMFORTABLY; A/OX4, BREATHING EVEN AND UNLABORED; PATIENT ON 5LPM VIA SIMPLE MASK, TOLERATING WELL; NO SOB NOTED; NO DISTRESS NOTED; PATIENT DENIES PAIN; PATIENT SLEPT THROUGHOUT SHIFT;L HAND #20 SL INTACT AND PATENT; FLUSHING WELL; NO S/S OF REDNESS OR INFILTRATION NOTED; ALL NEEDS RENDERED; SAFETY PRECAUTIONS IMPLEMENTED; BED LOCKED IN LOW POSITION; SIDE RAILS X2; CALL LIGHT WITHIN REACH; WILL ENDORSE ANISA TO ONCOMING SHIFT
[2019-09-13 08:00] VITALS: BP 131/86
[2019-09-13] MEDS: DOCUSATE SODIUM 100 MG CAPSULE PO SCH ×2 (08:09→16:12)
[2019-09-13] MEDS: PANTOPRAZOLE 40 MG TABLET.DR PO SCH (08:09)
[2019-09-13] MEDS: SERTRALINE HCL 25 MG TABLET PO SCH (08:09)
[2019-09-13] MEDS: PSYLLIUM SEED 1 PKT PACKET PO SCH ×2 (08:09→08:12)
[2019-09-13] MEDS: [UNRECOGNIZED DRUG - OTHER] PO SCH ×3 (08:09→16:12)
[2019-09-13] MEDS: CEFTRIAXONE 1 G in IV D5W 50 ML IV SCH (13:24)
[2019-09-13] MEDS: GUAIFENESIN/D-METHORPHAN HB 5 ML UDC PO PRN (13:29)
[2019-09-13 16:00] VITALS: BP 150/96
--- NOTE | 2019-09-13 18:39 | NUR ---
RN NOTES PATIENT IN THE BED RESTING COMFORTABLY IN MODERATE HIGH BACK REST. A/O X3. PATIENT ON MASK 4-5L, NO ACUTE RESPIRATORY DISTRESS NOTED THROUGHOUT THE SHIFT, IV ACCESS ON RIGHT HAND, INTACT AND PATENT, SL. SAFETY MEASURES IN PLACE, BED IN LOWEST LOCKED POSITION WITH SIDE RAILS UP X2. CALL LIGHT WITHIN REACH. WILL ENDORSE TO PROGRAM SCHEDULER NURSE FOR ANISA.
--- NOTE | 2019-09-13 19:10 | NUR ---
RN OPENING NOTES Received patient A/O x4, awake on bed resting comfortably. Denies any discomfort at this time. Kept on bed clean, dry and comfortable. Will continue to monitor accordingly.
[2019-09-13 20:00] VITALS: BP 118/88
[2019-09-13 20:04] VITALS: BP 118/88
[2019-09-13] MEDS: ATORVASTATIN 10 MG TABLET PO SCH (21:32)
[2019-09-13] MEDS: TAMSULOSIN 0.4 MG CAP.SR.24H PO SCH (21:32)
[2019-09-13] MEDS: ENOXAPARIN SODIUM 40 MG/0.4 ML DISP.SYRIN SQ SCH (21:33)
--- NOTE | 2019-09-14 06:38 | NUR ---
RN CLOSING NOTES Pt asleep on bed, no complaints of pain/discomfort noted. All nursing needs attended, due meds given as ordered. On fall and aspiration precautions. Call light within easy reach at all times. To be seen by Dr. Donahue today. Endorsed.
--- NOTE | 2019-09-14 07:35 | NUR ---
rn notes patient received on an oxygen mask, patient stated that he is comfortable with it. Will try to wean him off it, a/o x4 at this time. L hand 20 SL. Plan is to wait for pathology result to come back. bed at the lowest setting, call light within reach, side rails up x2.
[2019-09-14 08:00] VITALS: BP 128/82
[2019-09-14] MEDS: PANTOPRAZOLE 40 MG TABLET.DR PO SCH (09:04)
[2019-09-14] MEDS: DOCUSATE SODIUM 100 MG CAPSULE PO SCH ×2 (09:04→16:58)
[2019-09-14] MEDS: PSYLLIUM SEED 1 PKT PACKET PO SCH (09:04)
[2019-09-14] MEDS: SERTRALINE HCL 25 MG TABLET PO SCH (09:04)
[2019-09-14] MEDS: [UNRECOGNIZED DRUG - OTHER] PO SCH ×3 (09:04→16:58)
--- NOTE | 2019-09-14 10:09 | NUR ---
I INFORMED RN, THAT PER RADIOLOGIST WE DON'T HAVE PLEUREX CATHETER IN THIS HOSPITAL, SO RN WILL CONTACT THE ORDERING MD, TO SEE IF HE WNTS TO PROCEED W THORACENTESIS ONLY
[2019-09-14] MEDS: CEFTRIAXONE 1 G in IV D5W 50 ML IV SCH (13:48)
[2019-09-14] MEDS: GUAIFENESIN/D-METHORPHAN HB 5 ML UDC PO PRN ×2 (13:49→21:35)
[2019-09-14 16:00] VITALS: BP 119/80
--- NOTE | 2019-09-14 18:00 | NUR ---
rn notes patient remains on a mask on and off for comfort a/o x4 and denies pain at this time. R wrist 20 present. No new labs today. Plan is to have thoracentesis vs pleureX, depending on often he will need thoracentesis. Tumor tissue sent out to lab. Bed at the lowest setting, call light within reach, side rails up x2.
--- NOTE | 2019-09-14 19:35 | NUR ---
RN OPENING NOTES RECEIVED REPORT FROM DAYSHIFT RNCATA. FOUND Pt AWAKE, RESTING IN BED. Pt IS A/OX4, VERBAL, ABLE TO MAKE NEEDS KNOWN. NO S/S OF ACUTE DISTRESS OR SOB NOTED. IV ACCESS ON LHAND #20G, SL. SAFETY MEASURES IN PLACE. BED LOW, LOCKED, HOB ELEVATED, SIDE RAILS UP, CALL LIGHT AND BEDSIDE TABLE WITHIN REACH. WILL CONTINUE TO MONITOR Pt's CONDITION AND SAFETY THROUGHOUT THE NIGHT.
[2019-09-14 20:52] VITALS: BP 136/90
[2019-09-14] MEDS: ATORVASTATIN 10 MG TABLET PO SCH (21:35)
[2019-09-14] MEDS: TAMSULOSIN 0.4 MG CAP.SR.24H PO SCH (21:35)
[2019-09-14] MEDS: ENOXAPARIN SODIUM 40 MG/0.4 ML DISP.SYRIN SQ SCH (21:36)
[2019-09-15 07:36] LABS: BASOPHILS # (AUTO) 0.1 /CMM (0.0-0.2); BASOPHILS % (AUTO) 0.6 % (0.0-2.0); CALCIUM, SERUM 8.1 mg/dL (8.5-10.1); CREATININE 0.9 mg/dL (0.6-1.3); HEMATOCRIT 42 % (39-51); HEMOGLOBIN 13.9 g/dL (13.5-17.5); MAGNESIUM 2.1 mg/dL (1.8-2.4); MEAN CORPUSCULAR HGB CONC 33 g/dl (31.0-36.0); MEAN CORPUSCULAR VOLUME 91 fL (80-96); MONOCYTES # (AUTO) 1.2 /CMM (0.1-1.30); MONOCYTES % (AUTO) 11.7 % (2.0-12.0); NEUTROPHILS # (AUTO) 8.2 /CMM (1.8-8.9); NEUTROPHILS % (AUTO) 76.7 % (43.0-81.0); PHOSPHORUS 3.4 mg/dL (2.5-4.9); PLATELET COUNT (AUTO) 425 /CMM (150-450); POTASSIUM 4.2 mmol/L (3.5-5.1); RED BLOOD CELL COUNT(AUTO) 4.59 MIL/uL (4.5-6.0); WHITE BLOOD COUNT (AUTO) 10.7 K/uL (4.3-11.0)
--- NOTE | 2019-09-15 07:42 | NUR ---
RN CLOSING NOTES ENDORSED TO DAYSHIFT DEMAR IVY FOR Pt's ANISA. NO SIGNIFICANT CHANGES NOTED DURING THE SHIFT. ALL NEEDS MET AND ATTENDED TO. NO S/S OF ACUTE DISTRESS OR SOB NOTED DURING THE NIGHT. SAFETY MEASURES IN PLACE.
[2019-09-15 08:00] VITALS: BP 135/82
--- NOTE | 2019-09-15 08:00 | NUR ---
MS RN OPENING NOTES Received Patient awake and resting in bed. A/O x 4. VS stable with no acute distress. Breathing even and unlabored on 3LPM via mask with no respiratory distress. Denies pain. No signs and symptoms of pain. 20g PIV on left hand clean, intact, patent and flushing well. Safety precautions in place. Bed locked and set to lowest position with side rails x 2 up. All needs rendered at this time. Call light within reach. Will continue to monitor.
[2019-09-15] MEDS: SERTRALINE HCL 25 MG TABLET PO SCH (08:58)
[2019-09-15] MEDS: [UNRECOGNIZED DRUG - OTHER] PO SCH ×3 (08:58→17:12)
[2019-09-15] MEDS: DOCUSATE SODIUM 100 MG CAPSULE PO SCH ×2 (08:58→17:12)
[2019-09-15] MEDS: PANTOPRAZOLE 40 MG TABLET.DR PO SCH (08:58)
[2019-09-15] MEDS: PSYLLIUM SEED 1 PKT PACKET PO SCH (09:00)
[2019-09-15] MEDS: GUAIFENESIN/D-METHORPHAN HB 5 ML UDC PO PRN (13:10)
[2019-09-15] MEDS: CEFTRIAXONE 1 G in IV D5W 50 ML IV SCH (13:45)
[2019-09-15 16:00] VITALS: BP 138/77
--- NOTE | 2019-09-15 18:20 | NUR ---
MS RN CLOSING NOTES Patient awake and resting in bed. A/O x 4. VS stable with no acute distress. Breathing even and unlabored on room air with no respiratory distress. Denies pain. No signs and symptoms of pain. 22g PIV on left hand clean, intact, patent and flushing well. Safety precautions in place. Bed locked and set to lowest position with side rails x 2 up. All needs rendered at this time. Call light within reach. Will endorse plan of care to oncoming shift.
--- NOTE | 2019-09-15 19:40 | NUR ---
RN OPENING NOTES RECEIVED REPORT FROM DAYSHIFT RNCATA. FOUND Pt AWAKE, RESTING IN BED, WATCHING TV. Pt IS A/OX4, VERBAL, ABLE TO MAKE NEEDS KNOWN. NO S/S OF ACUTE DISTRESS OR SOB NOTED. IV ACCESS ON [facility] #22G, SL. SAFETY MEASURES IN PLACE. BED LOW, LOCKED, HOB ELEVATED, SIDE RAILS UP, CALL LIGHT AND BEDSIDE TABLE WITHIN REACH. WILL CONTINUE TO MONITOR Pt's CONDITION AND SAFETY THROUGHOUT THE NIGHT.
[2019-09-15 20:00] VITALS: BP 134/82
[2019-09-15] MEDS: ACETAMINOPHEN 325 MG TABLET PO PRN (21:17)
[2019-09-16] MEDS: ATORVASTATIN 10 MG TABLET PO SCH (00:04)
[2019-09-16] MEDS: TAMSULOSIN 0.4 MG CAP.SR.24H PO SCH (00:05)
[2019-09-16] MEDS: ENOXAPARIN SODIUM 40 MG/0.4 ML DISP.SYRIN SQ SCH (00:07)
--- NOTE | 2019-09-16 06:33 | NUR ---
RN CLOSING NOTES NO SIGNIFICANT CHANGES IN Pt's CONDITION. ALL NEEDS MET AND ATTENDED TO. NO S/S OF ACUTE DISTRESS OR SOB NOTED DURING THE NIGHT. Pt RESTING COMFORTABLY IN BED. SAFETY MEASURES IN PLACE. WILL ENDORSE TO DAYSHIFT RN FOR Pt's ANISA.
--- NOTE | 2019-09-16 07:47 | NUR ---
MS RN OPENING NOTES RECEIVED PATIENT IN BED, AWAKE, A/O X4. PATIENT IS ON OXYGEN THERAPY AT 5 LPM; BREATHING IS EVEN AND UNLABORED; NO SOB PRESENT AT THIS MOMENT. NO COMPLAINS OF PAIN. R HAND IV ACCESS G # 22 PRESENT AND INTACT. SAFETY PRECAUTIONS IN PLACE; BED IN LOW POSITION AND LOCKED, RAILS UP X2, CALL LIGHT WITHIN REACH. WILL CONTINUE TO MONITOR.
[2019-09-16 08:13] VITALS: BP 120/80
[2019-09-16] MEDS: SERTRALINE HCL 25 MG TABLET PO SCH (08:19)
[2019-09-16] MEDS: DOCUSATE SODIUM 100 MG CAPSULE PO SCH ×2 (08:20→16:11)
[2019-09-16] MEDS: [UNRECOGNIZED DRUG - OTHER] PO SCH ×3 (08:20→16:11)
[2019-09-16] MEDS: PANTOPRAZOLE 40 MG TABLET.DR PO SCH (08:20)
[2019-09-16] MEDS: PSYLLIUM SEED 1 PKT PACKET PO SCH (08:23)
--- NOTE | 2019-09-16 13:53 | NUR ---
MS RN NOTES PATIENT DESATURATED TO 86% ON ROOM AIR AT REST. PLACED PT ON 5L PER NASAL CANNULA.
--- NOTE | 2019-09-16 14:48 | NUR ---
RN Note: Pt desaturated to 88% on 4L at rest. Placed back on O2 for comfort.
[2019-09-16] MEDS ORDERED: ATOR10TA PO (15:59)
[2019-09-16] MEDS ORDERED: SERT25TA5 PO (15:59)
[2019-09-16 16:06] VITALS: BP 151/96
--- NOTE | 2019-09-16 17:20 | NUR ---
MS FITTING ROOM ASSOCIATE NOTES PATIENT DISCHARGED HOME WITH HOME-HEALTH IN MEDICALLY STABLE CONDITION. VITAL SIGNS WNL. PATIENT HAD A PORTABLE OXYGEN THAT WAS DELIVERED TO THE HOSPITAL FOR HOME USAGE. ALL DISCHARGE DOCUMENTATION READY AND SIGNED BY PATIENT. TEACHING PROVIDED; PT VERBALIZED UNDERSTANDING. VALUABLES ACCOUNTED FOR EXCEPT PATIENT'S POCKET KNIFE. PER PATIENT IT WAS TAKEN BY THE NURSE AND DELIVERED TO THE SAFE. NO SAFE SPLIT IN PATIENT'S FOLDER; NO KNIFE AT THE SAFE (CHECKED DOWNSTAIRS). MEDICATIONS PICKED UP FROM THE PHARMACY AND RETURNED TO THE PATIENT. PATIENT SIGNED THE BELONGINGS FORM. UPON LEAVING THE UNIT IV ACCESS WAS REMOVED WITH THE WRISTBAND. PATIENT ACCOMPANIED BY THE RN TO THE LOBBY WHERE A FRIEND WAS WAITING WITH A PRIVATE CAR. PATIENT HELF THE HOSPITAL AT 1510
== END 2019-09-16 17:00 | disposition home health service (06) | DRG 180 ==
LOC: ER 18:22 → MED 21:12 → TELE1 21:32 → MEDSG1 09-06 07:35 → MEDSG2 09-08 11:21
PROVIDERS: ADMIT Registered Nurse; ATTEND Nurse Practitioner Acute Care
PROC: 0W9B3ZZ Drainage of Left Pleural Cavity, Percutaneous Approach (ICD-10-PCS; principal; 2019-09-04)
DX: C34.90 Malignant neoplasm of unspecified part of unspecified bronchus or lung (principal); J15.9 Unspecified bacterial pneumonia; F33.1 Major depressive disorder, recurrent, moderate; J91.8 Pleural effusion in other conditions classified elsewhere; C78.1 Secondary malignant neoplasm of mediastinum; I10 Essential (primary) hypertension; K59.00 Constipation, unspecified; Z79.899 Other long term (current) drug therapy; N40.0 Benign prostatic hyperplasia without lower urinary tract symptoms; Z87.891 Personal history of nicotine dependence; F41.1 Generalized anxiety disorder; J43.9 Emphysema, unspecified; J42 Unspecified chronic bronchitis
CPT/HCPCS: 36415; 71045-TC; 71270-TC; 74018; 80048-TC; 80053-TC; 80061-TC; 82728-TC; 83605-TC; 83615-TC; 83735-TC; 83880; 84100-TC; 84155-TC; 84443-TC; 84484-TC; 85025-TC; 85378-TC; 85610-TC; 85730-TC; 86140-TC; 87070-TC; 87075-TC; 87081-TC; 87102-TC; 87116; 87206; 88108-TC; 88305-TC; 88333-TC; 88341; 88342; 89051-TC; 93307-TC; 97116-TC; 97530-TC; A6253; G0378; J0360; J0696; J1650; J2250; J2310; J3010; J7030; J7050; J7060; Q9967; U0003-CS

== ENCOUNTER 2019-09-23 14:52 | Inpatient (IN) | payer MEDICARE, OTHER ==
[~2019-09-23] VITALS: Ht 170.2 cm; Wt 75.7 kg
[~2019-09-23 14:52] MED LIST: ATOR10TA PO; LOSA50TA39 PO; SERT25TA5 PO; TAMS-12 PO; [UNRECOGNIZED DRUG - OTHER] PO
--- NOTE | 2019-09-23 15:05 | NUR ---
PT CHARLENE FROM DR DOWELL'S OFFICE C/O L RIB AREA DISCOMFORT, SOB AND L FOOT PAIN. PT STATES WAS UNABLE TO TOLERATES WALKING NO MORE THAN 30 STEPS. PT WAS ADMITTED AND DISCHARGED LAST WEEK FOR PLEURAL EFFUSION. GOWNED AND PLACED ON MONITOR. VSS. AWAITING MD RICE.
--- NOTE | 2019-09-23 15:13 | NUR ---
DR MARTÍNEZ AT BEDSIDE FOR EVAL.
--- NOTE | 2019-09-23 15:25 | NUR ---
IV LINE STARTED BLOOD DRAWN AND SENT TO LAB.
[2019-09-23 15:35] LABS: BASOPHILS # (AUTO) 0.1 /CMM (0.0-0.2); BASOPHILS % (AUTO) 0.7 % (0.0-2.0); EOSINOPHILS % (AUTO) 2.4 % (0.0-6.0); HEMATOCRIT 46 % (39-51); HEMOGLOBIN 15.3 g/dL (13.5-17.5); LYMPHOCYTES # (AUTO) 0.7 /CMM (0.8-4.8); LYMPHOCYTES % (AUTO) 6.7 % (20.0-44.0); MEAN CORPUSCULAR HGB CONC 34 g/dl (31.0-36.0); MEAN CORPUSCULAR VOLUME 91 fL (80-96); MONOCYTES # (AUTO) 1.2 /CMM (0.1-1.30); MONOCYTES % (AUTO) 10.5 % (2.0-12.0); NEUTROPHILS # (AUTO) 8.7 /CMM (1.8-8.9); NEUTROPHILS % (AUTO) 79.7 % (43.0-81.0); PLATELET COUNT (AUTO) 360 /CMM (150-450); WHITE BLOOD COUNT (AUTO) 10.9 K/uL (4.3-11.0)
--- NOTE | 2019-09-23 15:42 | NUR ---
RADIOLOGY AT BEDSIDE FOR CHEST AND L ANKLE XRAY.
[2019-09-23 16:04] LABS: B-TYPE NATRIURETIC PEPTIDE 122 PG/ML (0-125); CALCIUM, SERUM 8.4 mg/dL (8.5-10.1); CARBON DIOXIDE 26 mmol/L (21-32); CHLORIDE 105 mmol/L (98-107); GLUCOSE 92 mg/dL (74-106); POTASSIUM 4.6 mmol/L (3.5-5.1); SODIUM SERUM 140 mmol/L (136-145); UREA NITROGEN, BLOOD 16 mg/dL (7-18)
[2019-09-23] MEDS ORDERED: ACETAMINOPHEN ES 500 MG TABLET PO ONE (17:00)
[2019-09-23] MEDS ORDERED: ACETAMINOPHEN ES 500 MG TABLET ONE (17:01)
--- NOTE | 2019-09-23 17:05 | NUR ---
PT C/O HEADACHE AND BACK PAIN 09/22. ERMD AWARE.
--- NOTE | 2019-09-23 17:25 | NUR ---
REPORT GIVEN TO ANAM BENZ FOR ANISA.
[2019-09-23] MEDS ORDERED: MAGNESIUM HYDROXIDE 30 ML UDC PO PRN (18:00)
[2019-09-23] MEDS ORDERED: ONDANSETRON HCL/PF 4 MG/2 ML VIAL IVP PRN (18:00)
[2019-09-23] MEDS ORDERED: MORPHINE SULFATE INJ 2 MG/ML DISP.SYRIN IV PRN (18:00)
[2019-09-23] MEDS ORDERED: Z GUARD REMEDY 2 OZ OINT TP PRN (18:00)
[2019-09-23] MEDS ORDERED: LOSARTAN POTASSIUM 50 MG TABLET PO SCH (18:00)
[2019-09-23 18:30] VITALS: BP 133/95
--- NOTE | 2019-09-23 18:30 | NUR ---
MS/BI ANALYST NOTES Received patient from ER, transferred from [facility] along with belongings. VS taken and recorded, placed on tele monitor. A&O x 4, oriented to room and surroundings. On 2L oxygen via NC. IV access noted on the R forearm #18 gauge, patent and intact, and flushing well. Sensation from all peripheral extremities noted. No pain and discomfort reported at this time. Instructed for call for assistance. Will endorse accordingly to police shift commander nurse for admission.
--- NOTE | 2019-09-23 19:10 | NUR ---
director television news notes Received pt in bed awake and able to make needs known. pt a/o x3. respirations even and unlabored with no s/s of acute distress or sob noted. pt noted with IV access noted on the R forearm #18 gauge, patent and intact. no complaints of pain at this time. safety measures in place with bed in lowest locked position with side rails up x2. call light within reach. will continue to monitor.
--- NOTE | 2019-09-23 19:15 | NUR ---
MS/RN NOTES Gave report to Rehan shift superintendent nurse. Endorsed to do admission.
[2019-09-23 20:00] VITALS: BP 137/90
[2019-09-23] MEDS: ATORVASTATIN 10 MG TABLET PO SCH (21:32)
[2019-09-23] MEDS: TAMSULOSIN 0.4 MG CAP.SR.24H PO SCH (21:32)
--- NOTE | 2019-09-23 22:00 | NUR ---
FLOORS BUFFER NOTES NO CHEMICAL COVERAGE AT THIS TIME. PT DUE FOR PROCEDURE IN MORNING. WILL CONTINUE TO MONITOR.
[2019-09-23] MEDS ORDERED: SODI88SP18 NS (23:10)
[2019-09-23] MEDS ORDERED: EUCA1LOZ37 MM (23:10)
[2019-09-23] MEDS ORDERED: [UNRECOGNIZED DRUG - OTHER] PO (23:10)
[2019-09-24] VITALS: BP 138/94
[2019-09-24] MEDS: ACETAMINOPHEN 325 MG TABLET PO PRN ×4 (00:05→19:56)
--- NOTE | 2019-09-24 01:00 | NUR ---
FIELD TRAINING AGENT NOTES PT REFUSED DVT PUMP AT THIS TIME. WILL CONTINUE TO MONITOR.
[2019-09-24 04:00] VITALS: BP 137/86
[2019-09-24 06:44] LABS: BASOPHILS # (AUTO) 0.1 /CMM (0.0-0.2); BASOPHILS % (AUTO) 0.8 % (0.0-2.0); EOSINOPHILS % (AUTO) 2.8 % (0.0-6.0); HEMATOCRIT 43 % (39-51); HEMOGLOBIN 14.3 g/dL (13.5-17.5); LYMPHOCYTES # (AUTO) 0.9 /CMM (0.8-4.8); LYMPHOCYTES % (AUTO) 8.8 % (20.0-44.0); MEAN CORPUSCULAR HGB CONC 33 g/dl (31.0-36.0); MEAN CORPUSCULAR VOLUME 90 fL (80-96); MONOCYTES # (AUTO) 1.1 /CMM (0.1-1.30); MONOCYTES % (AUTO) 11.3 % (2.0-12.0); NEUTROPHILS # (AUTO) 7.5 /CMM (1.8-8.9); NEUTROPHILS % (AUTO) 76.3 % (43.0-81.0); PLATELET COUNT (AUTO) 314 /CMM (150-450); WHITE BLOOD COUNT (AUTO) 9.9 K/uL (4.3-11.0)
[2019-09-24 07:01] LABS: CALCIUM, SERUM 8.4 mg/dL (8.5-10.1); CREATININE 0.9 mg/dL (0.6-1.3); MAGNESIUM 2.2 mg/dL (1.8-2.4); PHOSPHORUS 3.2 mg/dL (2.5-4.9); POTASSIUM 4.1 mmol/L (3.5-5.1)
--- NOTE | 2019-09-24 07:30 | NUR ---
MS/RN OPENING NOTES Received patient in bed, A&O x 4. On 5L oxygen using face mask, per patient's request. Denies any pain or discomfort at this time. Breathing even and non-labored. No respiratory or cardiac distress noted at this time. On tele monitor, reading SR HR 83. IV access noted on the R forearm #18 gauge, patent and intact, and flushing well. Sensation from all peripheral extremities noted. Instructed to use call light for assistance when getting out of bed. Fall precautions maintained. Will continue with current medical management.
--- NOTE | 2019-09-24 07:46 | NUR ---
tele marketing executive notes pt in bed awake and able to make needs known. pt a/o x3. respirations even and unlabored with no s/s of acute distress or sob noted throughout shift. pt noted with IV access noted on the R forearm #18 gauge, patent and intact. no complaints of pain at this time. safety measures in place with bed in lowest locked position with side rails up x2. call light within reach. will endorse to oncoming nurse for humberto.
[2019-09-24 08:00] VITALS: BP 141/87
[2019-09-24] MEDS: SERTRALINE HCL 25 MG TABLET PO SCH (08:10)
--- NOTE | 2019-09-24 08:23 | NUR ---
CALLED THE RADIOLOGIST HEAD OF BUSINESS DEVELOPMENT, mD THOMPSON, INFEORMED HIM ABOUT THE THORA, AND HE WILL CALL ME BACK, PER MD HAD SOME TRAUMA CASES LAST NIGHT, SO WILL GET BACK TO ME LATER
--- NOTE | 2019-09-24 09:00 | NUR ---
MS/RN NOTES Patient prefers to use oxygen mask rather than nasal cannula, states that "I can't breathe with the nasal cannula."
--- NOTE | 2019-09-24 13:15 | NUR ---
MS/RN NOTES Spoke with Dr. Cedillo, states okay to discontinue cozaar 50 mg, since patient has not taken it for 3 months and has a stable blood pressure of 130s-140s/70s-80s. Also, patient brought Hcl Pepsin 650 mg supplement, which he takes from home. Spoke with Dr. Cedillo regarding supplement, states to put an order. Sent the supplements to pharmacy and instructed them that patient takes one capsule per meal.
--- NOTE | 2019-09-24 15:00 | NUR ---
MS/RN NOTES US thoracentesis on the left lung done by Dr. Richards @5040. 100 cc of serosanguinous pleural fluid (output) noted. Sent pleural fluid to lab for body fluid analysis. Will continue to monitor patient for any changes of condition.
--- NOTE | 2019-09-24 15:45 | NUR ---
MS/RN NOTES Collected covid-19 test for placement, sent to lab at 6289.
[2019-09-24 16:00] VITALS: BP 155/95
--- NOTE | 2019-09-24 17:23 | NUR ---
MS/RN NOTES Asked Dr. Cedillo for an order of VTE chemical prophylaxis, but states "compression boots only." Order carried out.
[2019-09-24] MEDS: [UNRECOGNIZED DRUG - OTHER] PO SCH (18:00)
--- NOTE | 2019-09-24 18:24 | NUR ---
MS/RN CLOSING NOTES Patient resting comfortably in bed, A&O x 4. Patient has no complaints of pain or discomfort at this time. On 4L oxygen using face mask, per patient's request. Breathing even and non-labored, no SOB noted. No cardiac distress noted at this time. IV access noted on the R forearm #18 gauge, patent and intact, and flushing well. Sensation from all peripheral extremities intact. Instructed patient to call for help or use call light when getting out of bed. Patient verbalized understanding. Fall precautions maintained. Will endorse to warehouse worker 2nd shift nurse.
--- NOTE | 2019-09-24 19:05 | NUR ---
RN OPENING NOTES Received patient A/O x4, awake, on bed. On O2 via mask @ 4LPM, saturating well. S/P thoracentesis, no bleeding noted. Kept on bed, clean, dry and comfortable. On fall precautions. Will continue to monitor accordingly.
[2019-09-24 20:00] VITALS: BP 144/85
[2019-09-24] MEDS: TAMSULOSIN 0.4 MG CAP.SR.24H PO SCH (21:50)
[2019-09-24] MEDS: ATORVASTATIN 10 MG TABLET PO SCH (21:50)
[2019-09-24] MEDS: HYDROCODONE/APAP 5/325MG 1 EACH TABLET PO PRN (21:57)
[2019-09-24] MEDS ORDERED: GUAIFENESIN/D-METHORPHAN HB 5 ML UDC PO PRN (22:30)
[2019-09-24] MEDS ORDERED: LORAZEPAM 1 MG TABLET PO PRN (22:30)
[2019-09-24] MEDS: DEXAMETHASONE 4 MG TABLET PO SCH (22:57)
[2019-09-24] MEDS: LEVETIRACETAM (250 MG) 250 MG TABLET PO SCH (22:57)
--- NOTE | 2019-09-25 01:06 | NUR ---
RN NOTES RECEIVED REPORT FROM DEMAR RONDON.ASSESSED PATIENT, ASLEEP IN BED, ON 02 AT 4LPM VIA MASK, SATURATING WELL. S/P THORACENTESIS, NO SIGNS OF BLEEDING NOTED. SAFETY MEASURES IN PLACE, KEPT ON BED, KEEP CLEAN WARM DRY AND COMFORTABLE. ON FALL PRECAUTIONS. CALL LIGHT WITHIN EASY REACH. ALL NEEDS ANTICIPATED. WILL CONTINUE TO MONITOR ACCORDINGLY.
--- NOTE | 2019-09-25 01:08 | NUR ---
RN NOTES Endorsed patient to RN Anusha for ANISA.
--- NOTE | 2019-09-25 06:17 | NUR ---
RN NOTES ALL NEEDS ATTENDED AND MET. ABLE TO REST AND SLEPT AT INTERVALS. ASLEEP IN BED,AT THIS TIME. ON 02 AT 4LPM VIA MASK, SATURATING WELL. S/P THORACENTESIS, NO SIGNS OF BLEEDING NOTED. SAFETY MEASURES IN PLACE, KEPT ON BED, KEEP CLEAN WARM DRY AND COMFORTABLE. ON FALL PRECAUTIONS. CALL LIGHT WITHIN EASY REACH. ALL NEEDS ANTICIPATED. WILL ENDORSE TO AM NURSE FOR CONTINUITY OF CARE.
--- NOTE | 2019-09-25 07:45 | NUR ---
MS/RN OPENING NOTES Received patient resting in bed, A&O x 4. Patient denies any pain or discomfort at this time. On 4L oxygen using face mask, breathing even and non-labored. No respiratory or cardiac distress noted at this time. IV access noted on the R forearm #18 gauge, patent and intact, and flushing well. Sensation from all peripheral extremities intact. Instructed patient to call us by using call light for assistance when ambulating out of bed. Fall precautions maintained. Will continue with current medical management.
[2019-09-25] MEDS: LEVETIRACETAM (250 MG) 250 MG TABLET PO SCH ×2 (08:19→21:05)
[2019-09-25] MEDS: DEXAMETHASONE 4 MG TABLET PO SCH ×2 (08:19→17:11)
[2019-09-25] MEDS: SERTRALINE HCL 25 MG TABLET PO SCH (08:19)
[2019-09-25] MEDS: [UNRECOGNIZED DRUG - OTHER] PO SCH ×3 (08:20→17:11)
--- NOTE | 2019-09-25 08:30 | NUR ---
MS/RN NOTES Patient reports right calf stiffness and pain. Dr. Cedillo at bedside, ordered duplex venous on the right lower extremity.
[2019-09-25] MEDS ORDERED: GUAIFENESIN/CODEINE 10 ML UDC PO PRN (10:00)
--- NOTE | 2019-09-25 14:12 | NUR ---
INITIAL FINDING OF DUPLEX VENOUS LOWER EXT RIGHT SHOWED POSITIVE FOR THROMBUS AT POP VEIN. RN ADVISED.
--- NOTE | 2019-09-25 14:49 | NUR ---
MS/RN NOTES Patient positive for DVT on right leg from venous duplex, notified Dr. Cedillo. Still awaiting for orders.
--- NOTE | 2019-09-25 16:05 | NUR ---
MS/RN NOTES Dr. Cedillo states to start heparin drip. Ordered PTT stat and heparin drip order set for non-acute coronary syndromes (DVT) per charge nurse's instructions.
[2019-09-25] MEDS ORDERED: HEPARIN SODIUM, PORCINE 5000 UNITS/1 ML VIAL IV ONE (17:30)
--- NOTE | 2019-09-25 17:45 | NUR ---
MS/RN NOTES Received PTT result, 26.6.
--- NOTE | 2019-09-25 18:00 | NUR ---
MS/RN NOTES Assessed patient for any bleeding, no s/s of bleeding noted. Infused heparin IV bolus of 6000 units prior to drip based on weight-based heparin dosing orders not for acute coronary syndromes.
--- NOTE | 2019-09-25 18:05 | NUR ---
MS/RN NOTES Patient exhibits no s/s of bleeding at this time. Started initial IV infusion for heparin drip at 27 mls/hr (1350 units/hr), since patient's weight is 75 kg. Order carried out and followed through weight-based heparin dosing orders (not for acute coronary syndromes) form. Will continue to monitor patient for any s/s of bleeding.
[2019-09-25] MEDS: HEPARIN INFUSION/D5W 500 ML IV PRN ×2 (18:08→18:17)
--- NOTE | 2019-09-25 19:28 | NUR ---
MS/RN CLOSING NOTES Patient resting comfortably in bed, A&O x 4. No complaints of any pain or discomfort at this time. Breathing even and non-labored on 3L via face mask. No respiratory or cardiac distress noted at this time. IV access noted on the R forearm #18 gauge, patent and intact, running heparin drip at 27 mls/hr. No s/s of infection/infiltration noted at the site. Sensation from all peripheral extremities intact. Instructed patient to call us by using call light for assistance when ambulating out of bed. Fall and bleeding precautions maintained. Will endorse to rn night nurse the plan of care. Addendum: 09/25/19 at 1944 by ANAM RON RN PTT will be checked at 2359, 6 hours after initial IV heparin infusion.
[2019-09-25 19:30] VITALS: BP 122/76
--- NOTE | 2019-09-25 19:52 | NUR ---
MS RN NOTES PATIENT IN BED, AWAKE, ALERT AND ORIENTED X 4. BREATHING EVEN AND UNLABORED ON 4L MASK, SHOWS NO SIGNS OF ACUTE RESPIRATORY DISTRESS, NO ACUTE PAIN. S./P THORACENTESIS 09/24/ 100 CC OUT. RFA 18G RUNNING HEPARIN AT 27ML/HR, 1350U/HR. SHOWS NO SIGNS OF INFILTRATION, NO REDNESS. SAFETY PRECAUTIONS IN PLACE. BED IN LOWEST POSITION, LOCKED, AND CALL LIGHT KEPT WITHIN REACH. WILL CONTINUE TO MONITOR.
[2019-09-25 20:00] VITALS: BP 122/76
[2019-09-25] MEDS: ATORVASTATIN 10 MG TABLET PO SCH (21:05)
[2019-09-25] MEDS: TAMSULOSIN 0.4 MG CAP.SR.24H PO SCH (21:05)
--- NOTE | 2019-09-25 22:30 | NUR ---
MS RN NOTES PATIENT REFUSING TO HAVE BED ALARM ON, STATES HE WANTS TO SIT AND EDGE OF THE BED. REMINDED PT TO CALL IF NEEDS TO USE THE RESTROOM. WILL CONTINUE TO MONITOR
[2019-09-25] MEDS: HYDROCODONE/APAP 5/325MG 1 EACH TABLET PO PRN (23:51)
[2019-09-26] MEDS ORDERED: HEPARIN SODIUM, PORCINE 5000 UNITS/1 ML VIAL IV ONE (00:30)
[2019-09-26] MEDS: HEPARIN INFUSION/D5W 500 ML IV PRN ×2 (00:48→08:35)
--- NOTE | 2019-09-26 00:50 | NUR ---
MS RN NOTES ADJUSTED HEPARIN DRIP WITH CHARGE NURSE FOLLOWING HEPARIN PROTOCOL. PTT 33.6, PER HEPARIN PROTOCOLS 6000 UNITS BOLUS AND INCREASE DRIP BY 4 UNITS/KG/HR. NEW RATE RATE WILL BE 1650 UNITS PER HOUR, PREVIOUSLY WAS 1350 UNITS PER HR. NEXT PTT 6HRS FROM BOLUS AND NEW RATE INCREASE AT 0650AM. WILL CONTINUE TO MONITOR.
[2019-09-26] MEDS: MAG HYDROX/AL HYDROX/SIMETH 30 ML UDC PO PRN ×3 (06:11→23:55)
--- NOTE | 2019-09-26 07:07 | NUR ---
MS RN NOTES PATIENT IN BED, AWAKE, ALERT AND ORIENTED X 4. BREATHING EVEN AND UNLABORED ON 4L MASK, SHOWS NO SIGNS OF ACUTE RESPIRATORY DISTRESS, NO ACUTE PAIN. S/P THORACENTESIS 09/24 100 CC OUT. RFA 18G RUNNING HEPARIN AT 33ML/HR, 1650U/HR. SHOWS NO SIGNS OF INFILTRATION, NO REDNESS. ALL DUE MEDICATIONS GIVEN. SAFETY PRECAUTIONS IN PLACE. BED IN LOWEST POSITION, LOCKED, AND CALL LIGHT KEPT WITHIN REACH. WILL ENDORSE TO ONCOMING NURSE
--- NOTE | 2019-09-26 07:41 | NUR ---
RN OPENING NOTE Patient is resting in bed, showing no signs of acute distress or SOB, patient is refusing to wear nasal cannula, he is on 4L simple face mask saturating >95%. Patient has a RFA#18g running heparin at 1650units/hr (33mls/hr). Bed is in lowest position, side rails x3 in upright position, call light is within reach, fall safety and aspiration precautions enforced. Will continue with plan of care.
[2019-09-26 08:00] VITALS: BP 158/92
[2019-09-26] MEDS: [UNRECOGNIZED DRUG - OTHER] PO SCH ×3 (08:11→17:07)
[2019-09-26] MEDS: SERTRALINE HCL 25 MG TABLET PO SCH (08:11)
[2019-09-26] MEDS: LEVETIRACETAM (250 MG) 250 MG TABLET PO SCH ×2 (08:11→21:26)
[2019-09-26] MEDS: DEXAMETHASONE 4 MG TABLET PO SCH ×2 (08:11→17:07)
[2019-09-26] MEDS: HYDROCODONE/APAP 5/325MG 1 EACH TABLET PO PRN ×3 (08:12→23:56)
--- NOTE | 2019-09-26 08:23 | NUR ---
RN NOTE Coagulation studies have just resulted, per protocol, no changes need to be made. Called to pharmacy because a new bag needs to be hung. Awaiting for pharmacy to bring the new bag of heparin. Charge nurse made aware.
--- NOTE | 2019-09-26 08:35 | NUR ---
RN NOTE Per heparin protocol, since the patient's PTT is 60.0, dose will not change. I will continue heparin drip 1650 units/hr (33 mls/hr). Co-signed new heparin bag and dose with RN and Charge nurse made aware.
--- NOTE | 2019-09-26 15:28 | NUR ---
RN NOTE Repeat PTT resulted 30.8. Assessed patient's IV site and noticed it was infiltrated. Patient stated there is no pain, however the forearm is swollen. Removed IV site and inserted new one into the LFA#18g. Per pharmacy, I will continue the same dose: 1650 units/hour (33mls/hour). Charge nurse is aware. Addendum: 09/26/19 at 1532 by ISAURA LIZ RN Right arm is elevated and ice pack has been applied. Per Charge nurse, I will order a repeat PTT in 6 hours. Will continue to closely monitor.
[2019-09-26 16:00] VITALS: BP 153/97
--- NOTE | 2019-09-26 17:39 | NUR ---
RN NOTE Received telephone orders from Dr. Downing: - Port-a-cath placement and left PluerX placement tomorrow 09/27/19 at 1230. - NPO after midnight - STOP heparin infusion at 0600. Orders repeated back to MD and will carry out. Charge nurse made aware.
--- NOTE | 2019-09-26 19:26 | NUR ---
RN CLOSING NOTE Patient is resting in bed, showing no signs of acute distress or SOB, patient is refusing to wear nasal cannula, he is on 4L simple face mask saturating >95%. Patient has a RFA#18g running heparin at 1650units/hr (33mls/hr). Endorsed to shift engineer that APTT will be drawn at 2130 and to stop heparin infusion at 0600 tomorrow. Consents have been signed for port-a-cath and pleurX placement tomorrow at 1230. Bed is in lowest position, side rails x3 in upright position, call light is within reach, fall safety and aspiration precautions enforced. Will endorse to shift engineer for ANISA.
[2019-09-26 20:00] VITALS: BP 156/94
--- NOTE | 2019-09-26 20:00 | NUR ---
MS RN NOTE: PATIENT RESTING IN BED, NO ACUTE DISTRESS NOTED. BREATHING EVEN AND UNLABORED, NO SOB NOTED. OXYGEN AT 4 LPM VIA MASK IN PLACE. IV TO HAIDER IN PLACE, INFUSING HEPARIN AT 1650 UNITS/HR. NO ACTIVE BLEEDING NOTED. ISOLATION PRECAUTIONS OBSERVED. BED LOCKED AND IN LOWEST POSITION, CALL LIGHT IN REACH. WILL CONTINUE TO MONITOR.
[2019-09-26] MEDS: TAMSULOSIN 0.4 MG CAP.SR.24H PO SCH (21:26)
[2019-09-26] MEDS: ATORVASTATIN 10 MG TABLET PO SCH (21:26)
--- NOTE | 2019-09-26 21:45 | NUR ---
MS RN NOTE: PATIENT PTT RESULTS ARE 62.4, PER HEPARIN PROTOCOL, NO CHANGE AT THIS TIME. CONTINUE WITH CURRENT RATE OF 1650UNITS/HR, 33ML/HR. PATIENT TO HAVE PTT DRAWN WITH MORNING LABS. NO ACTIVE BLEEDING NOTED. WILL CONTINUE TO MONITOR.
[2019-09-27] VITALS (8 sets, daily range): BP systolic 145–174; BP diastolic 73–102
[2019-09-27] MEDS: HEPARIN INFUSION/D5W 500 ML IV PRN (00:09)
--- NOTE | 2019-09-27 00:10 | NUR ---
MS RN NOTE: PATIENT COMPLAINS OF BACK PAIN 09/22, NORCO 5/325MG 1 TAB ORAL GIVEN PER MD ORDER. PATIENT HEPARIN DRIP BAG CHANGED WITH CURRENT RATE OF 1650 UNITS/HR, 33 ML/HR. PATIENT TO BE NPO FOR SURGERY TOMORROW. CONSENTS SIGNED AND IN CHART. NO ACUTE BLEEDING NOTED. WATER PITCHER REMOVED FROM BEDSIDE. BED LOCKED AND IN LOWEST POSITION, CALL LIGHT IN REACH. WILL CONTINUE TO MONITOR.
--- NOTE | 2019-09-27 06:00 | NUR ---
MS RN NOTE: PATIENT RESTING IN BED, NO ACUTE DISTRESS NOTED. BREATHING EVEN AND UNLABORED, NO SOB NOTED. OXYGEN AT 4 LPM VIA MASK IN PLACE. IV TO HAIDER IN PLACE. HEPARIN DRIP STOPPED AT THIS TIME DUE TO HAVE SURGERY TODAY. PATIENT NPO SINCE MIDNIGHT. ISOLATION PRECAUTIONS OBSERVED. BED LOCKED AND IN LOWEST POSITION, CALL LIGHT IN REACH. WILL ENDORSE TO DAY NURSE TO CONTINUE WITH PLAN OF CARE.
[2019-09-27 07:02] LABS: BASOPHILS % (AUTO) 0.2 % (0.0-2.0); HEMATOCRIT 41 % (39-51); HEMOGLOBIN 13.4 g/dL (13.5-17.5); LYMPHOCYTES # (AUTO) 0.8 /CMM (0.8-4.8); LYMPHOCYTES % (AUTO) 4.2 % (20.0-44.0); MEAN CORPUSCULAR HGB CONC 33 g/dl (31.0-36.0); MEAN CORPUSCULAR VOLUME 89 fL (80-96); MONOCYTES # (AUTO) 0.8 /CMM (0.1-1.30); MONOCYTES % (AUTO) 4.5 % (2.0-12.0); NEUTROPHILS % (AUTO) 91.1 % (43.0-81.0); PLATELET COUNT (AUTO) 331 /CMM (150-450); RED BLOOD CELL COUNT(AUTO) 4.56 MIL/uL (4.5-6.0); WHITE BLOOD COUNT (AUTO) 18.7 K/uL (4.3-11.0)
[2019-09-27 07:05] LABS: CALCIUM, SERUM 8.5 mg/dL (8.5-10.1); CREATININE 0.9 mg/dL (0.6-1.3); POTASSIUM 4.1 mmol/L (3.5-5.1)
[2019-09-27] MEDS: [UNRECOGNIZED DRUG - OTHER] PO SCH ×3 (08:00→16:59)
--- NOTE | 2019-09-27 08:30 | NUR ---
RN Opening note Received patient in bed AO x 4, able to responds all stimuli, does no c/o pain or any discomfort. Patient going procedure for brayan cath and pleurx cath placement, kept NPO and disconnect heparin drip. No s/s of bleeding observed. Skin is warm to touch, clean/dry, intact IV site. Respiratory even and unlabored with oxygen at 4LPM mask. Keep bed in locked with elevated HOB for ensure airway, aspiration precaution and low position of the bed for safety. Call light within reach, will continue to monitor.
--- NOTE | 2019-09-27 08:40 | NUR ---
Patient going procedure for brayan cath and pleurx cath placement, obtained sign on consent.
[2019-09-27] MEDS: SERTRALINE HCL 25 MG TABLET PO SCH (09:00)
[2019-09-27] MEDS: DEXAMETHASONE 4 MG TABLET PO SCH ×2 (09:00→16:59)
[2019-09-27] MEDS: LEVETIRACETAM (250 MG) 250 MG TABLET PO SCH ×2 (09:00→20:41)
[2019-09-27 11:05] LABS: LYMPHOCYTES % (MANUAL) 6 % (16-48); MONOCYTES % (MANUAL) 8 % (0-11.0); MYELOCYTES % 1 % (0-0); NEUTROPHILS % (MANUAL) 85 (42-76)
[2019-09-27] MEDS ORDERED: FENTANYL PF 100MCG/2ML AMPUL ONE ×2 (12:13→14:17)
[2019-09-27] MEDS ORDERED: LIDOCAINE MPF 1%-EPI 1:200,000 30 ML VIAL IJ ONE ×2 (12:38→12:39)
--- NOTE | 2019-09-27 14:50 | NUR ---
Patient back from procedure, reported by lia/Edward BENZ. Pt denies pain or discomfort, no distress observed, V/S stable: bp-145/91, p-61, r-20, t- 98.6, O2sat,94-95 %. No active bleeding observed from dressing. Will continue to monitor.
--- NOTE | 2019-09-27 15:31 | NUR ---
Spoke with Dr. Irizarry regarding blood anticoagulate and received new order d/c heparin drip, start Xarelto 15mg po bid at 1900 today. Noted and carry out.
--- NOTE | 2019-09-27 16:00 | NUR ---
Received phone call from Dr. Kay regarding appt. on at 0840, informed patient.
--- NOTE | 2019-09-27 18:46 | NUR ---
RN Closing note Patient in bed, watching TV comfortably, does no c/o pain or distress regarding s/p brayan cath and pleurx cath placement. No bleeding, dressing keep clean/dry. Respiratory even and unlabored with oxygen at 4LPM with mask, O2sat 98%. Keep bed in locked with elevated HOB for secure airway and aspiration precaution and low position of the bed for safety. Call light within reach, will endorse building mechanic.
--- NOTE | 2019-09-27 18:53 | NUR ---
RN Closing note Patient in bed sleeping comfortably, does no appears pain or distress regarding s/p PEG. No bleeding, dressing keep clean/dry, running Glucena 1.2 at 40 ml and pt tolerated. Respiratory even and unlabored with oxygen at 4LPM with mask, O2sat 98%, provided suction and oral care. Keep bed in locked with elevated HOB for secure airway and aspiration precaution and low position of the bed for safety. Call light within reach, will endorse warehouse worker 2nd shift.
--- NOTE | 2019-09-27 19:29 | NUR ---
MS RN OPENING NOTES: RECEIVED PT ON 4LPM VIA FACE MASK AND IS TOLERATING WELL. PT IS A/OX4. NO SOB NOTED. NO S/S OF DISTRESS. PT HAD IV ON L FOREARM #18G AND IS PATENT AND INTACT. CURRENTLY H/L. BED KEPT IN LOW, LOCKED POSITION, AND SIDE RAILS X 2UP. WILL CONTINUE TO MONITOR PT.
[2019-09-27] MEDS: MAG HYDROX/AL HYDROX/SIMETH 30 ML UDC PO PRN (19:38)
[2019-09-27] MEDS: HYDROCODONE/APAP 5/325MG 1 EACH TABLET PO PRN (19:38)
[2019-09-27] MEDS: RIVAROXABAN 15 MG TABLET PO SCH (19:40)
--- NOTE | 2019-09-27 19:42 | NUR ---
MS RN NOTES: PT GIVEN NORCO 5 PO FOR 710 PAIN ON PROCEDURE SITE L UPPER CHEST. WILL CONTINUE TO MONITOR. PT ALSO REQUESTED MAALOX. ADMINISTERED ORDERED.
[2019-09-27] MEDS: TAMSULOSIN 0.4 MG CAP.SR.24H PO SCH (21:00)
[2019-09-27] MEDS: ATORVASTATIN 10 MG TABLET PO SCH (21:00)
[2019-09-28 02:00] VITALS: BP 167/99
[2019-09-28] MEDS: HYDROCODONE/APAP 5/325MG 1 EACH TABLET PO PRN ×4 (02:06→21:56)
--- NOTE | 2019-09-28 02:09 | NUR ---
MS RN NOTES: PT COMPLAINIG OF 7/10 PAIN ON WHERE PORT A CATH WAS INSERTED ON LEFT UPPER CHEST AND ALSO BACK PAIN. PT WAS ADMINISTERED NORCO 5 PO. WILL CONTINUE TO MONITOR.
[2019-09-28] MEDS: ACETAMINOPHEN 325 MG TABLET PO PRN (04:23)
--- NOTE | 2019-09-28 04:25 | NUR ---
RN NOTES: PT STILL COMPLAINING OF ACHY/SHARPY PAIN AT THE SITE WHERE THE PORT A CATH WAS PLACED. PT WAS ADMINISTERED TYLENOL 650MG PO. WILL CONTINUE TO MONITOR.
--- NOTE | 2019-09-28 06:08 | NUR ---
RN CLOSING NOTES: ALL NEEDS WERE ATTENDED AND ANTICIPATED FOR. PT REMAINS IN BED AND IS COMFORTABLE AT THIS TIME. NO PAIN NOTED. NO SOB NOTED. PT REMAINS ON 4LPM VIA SIMPLE MASK. PT HAS L FOREARM #18G AND IS PATENT AND INTACT. PT REMAINS H/L. PT ALSO HAS L UPPER CHEST PORT CATH AND L PLEUX AND DRESSING IS CLEAN AND DRY AT BOTH SITES. NO BLEEDING NOTED. BED KEPT IN LOW, LOCKED POSITION, AND SIDE RAILS X 2UP, CALL LIGHT WITHIN REACH. WILL ENDORSE TO AM NURSE FOR ANISA.
--- NOTE | 2019-09-28 07:02 | NUR ---
RN NOTES: ENDORSED TO DEMAR MENDIETA.
--- NOTE | 2019-09-28 07:52 | NUR ---
MS/RN OPENING NOTES Patient resting in bed, A&O x 4. Patient denies any pain/discomfort at this time. Breathing even and non-labored on 4L via face mask. No respiratory or cardiac distress noted. IV access located on the L fore arm # 18 gauge, patent and intact, and flushing well. No infiltration/infection noted at site. L chest port-a-cath and L pleurx noted with dry, intact, and clean dressing. Sensation from all peripheral extremities intact. Fall precautions maintained. Will continue with current plan of care.
[2019-09-28 08:00] VITALS: BP 118/70
[2019-09-28] MEDS: DEXAMETHASONE 4 MG TABLET PO SCH ×2 (08:11→17:18)
[2019-09-28] MEDS: LEVETIRACETAM (250 MG) 250 MG TABLET PO SCH ×2 (08:11→21:08)
[2019-09-28] MEDS: SERTRALINE HCL 25 MG TABLET PO SCH (08:11)
[2019-09-28] MEDS: [UNRECOGNIZED DRUG - OTHER] PO SCH ×3 (08:11→17:18)
[2019-09-28] MEDS: RIVAROXABAN 15 MG TABLET PO SCH ×2 (08:13→17:18)
[2019-09-28] MEDS: AMLODIPINE BESYLATE 5 MG TABLET PO SCH (09:55)
--- NOTE | 2019-09-28 10:00 | NUR ---
MS/RN NOTES Patient expresses concerns of leaving his hutchins knife in the hospital during his last admission on 09/01/2019. Called nursing supervisor trust accounts and Carlos, whether there's a hutchins knife that was left in the safe, they stated that there is no record under patient's name. Informed patient, but he expresses that he even signed on the property list and bag that was kept in. Item was not in the unit safe as well. Notified charge nurse about situation.
[2019-09-28 11:36] LABS: BASOPHILS % (AUTO) 0.1 % (0.0-2.0); EOSINOPHILS % (AUTO) 0.1 % (0.0-6.0); HEMATOCRIT 44 % (39-51); HEMOGLOBIN 14.3 g/dL (13.5-17.5); LYMPHOCYTES # (AUTO) 0.9 /CMM (0.8-4.8); LYMPHOCYTES % (AUTO) 5.7 % (20.0-44.0); MEAN CORPUSCULAR HGB CONC 33 g/dl (31.0-36.0); MEAN CORPUSCULAR VOLUME 91 fL (80-96); MONOCYTES # (AUTO) 1.2 /CMM (0.1-1.30); MONOCYTES % (AUTO) 7.6 % (2.0-12.0); NEUTROPHILS # (AUTO) 13.8 /CMM (1.8-8.9); NEUTROPHILS % (AUTO) 86.5 % (43.0-81.0); PLATELET COUNT (AUTO) 340 /CMM (150-450); RED BLOOD CELL COUNT(AUTO) 4.84 MIL/uL (4.5-6.0); WHITE BLOOD COUNT (AUTO) 15.9 K/uL (4.3-11.0)
[2019-09-28 13:06] LABS: LYMPHOCYTES % (MANUAL) 7 % (16-48); MONOCYTES % (MANUAL) 7 % (0-11.0); NEUTROPHILS % (MANUAL) 86 (42-76)
[2019-09-28 16:00] VITALS: BP 151/91
--- NOTE | 2019-09-28 19:15 | NUR ---
MS/RN CLOSING NOTES Patient resting in bed, A&O x 4. Patient denies any pain/discomfort at this time, last norco given 1221. Breathing even and non-labored on 4L via face mask, no SOB noted. No respiratory or cardiac distress noted. IV access located on the L fore arm # 18 gauge, patent and intact, and flushing well. No infiltration/infection noted at site. L chest port-a-cath and L pleurx noted with dry, intact, and clean dressing. No bleeding noted. Sensation from all peripheral extremities remained intact. Fall precautions maintained. Will endorse to [place] mill operator nurse.
--- NOTE | 2019-09-28 19:44 | NUR ---
MS/RN OPENING NOTES RECEIVED PATIENT AWAKE ALERT ORIENTED X4, DENIES PAIN OR DISCOMFORT AT THIS TIME, BREATHING EVEN AND UNLABORED ON O2 AT 4 LPM VIA FACE MASK. NO SIGNS OF ACUTE CARDIAC OR RESPIRATORY DISTRESS NOTED. PERIPHERAL IV LINE ON HIS LEFT FOREARM INTACT AND PATENT. LEFT CHEST PORT-A-CATH AND LEFT PLEURX DRY AND INTACT DRESSING NOTED. SAFETY MEASURES IN PLACE, CALL LIGHT WITHIN EASY REACH. BED IN LOW LOCKED POSITION. ALL NEEDS ANTICIPATED WILL CONTINUE TO MONITOR ACCORDINGLY.
[2019-09-28 20:00] VITALS: BP 160/91
[2019-09-28] MEDS: ATORVASTATIN 10 MG TABLET PO SCH (21:57)
[2019-09-28] MEDS: TAMSULOSIN 0.4 MG CAP.SR.24H PO SCH (22:01)
--- NOTE | 2019-09-29 01:34 | NUR ---
RN NOTES REPORT GIVEN TO DEMAR WRIGHT FOR ANISA.
--- NOTE | 2019-09-29 01:35 | NUR ---
RN NOTES RECEIVED PT. FROM ANOTHER NURSE JEFF, PT. IS SLEEPING BUT AROUSABLE, NOT IN DISTRESS, NO PAIN NOTED, CALL LIGHT WITHIN REACH, [id number], CONTINUE TO MONITOR
[2019-09-29] MEDS: HYDROCODONE/APAP 5/325MG 1 EACH TABLET PO PRN ×2 (04:37→13:01)
--- NOTE | 2019-09-29 04:37 | NUR ---
RN NOTES COMPLAINED OF GENERALIZED PAIN- NORCO 5/325MG PO GIVEN ORDERED, V/S STABLE
--- NOTE | 2019-09-29 07:30 | NUR ---
MS/RN OPENING NOTES Received patient resting in bed, A&O x 4. Patient denies any pain/discomfort at this time, last norco noted to be at 0430. Breathing even and non-labored on 4L via face mask, no SOB noted. No respiratory or cardiac distress noted. IV access located on the L forearm # 18 gauge, patent and intact, and flushing well. No infiltration/infection/bleeding noted at site. L chest port-a-cath and L pleurx noted with dry, intact, and clean dressing. Sensation from all peripheral extremities intact. Fall precautions maintained. Will continue with current plan of care.
[2019-09-29 08:00] VITALS: BP 164/94
[2019-09-29] MEDS: [UNRECOGNIZED DRUG - OTHER] PO SCH ×2 (08:30→13:01)
[2019-09-29] MEDS: SERTRALINE HCL 25 MG TABLET PO SCH (08:31)
[2019-09-29] MEDS: DEXAMETHASONE 4 MG TABLET PO SCH (08:31)
[2019-09-29] MEDS: LEVETIRACETAM (250 MG) 250 MG TABLET PO SCH (08:31)
[2019-09-29 08:32] VITALS: BP 164/94
[2019-09-29] MEDS: AMLODIPINE BESYLATE 5 MG TABLET PO SCH (08:32)
[2019-09-29] MEDS: RIVAROXABAN 15 MG TABLET PO SCH (08:32)
--- NOTE | 2019-09-29 11:00 | NUR ---
MS/RN NOTES Spoke and met up with Milton at the nursing administration office regarding patient's hutchins knife that was not retrieved during last discharge on 09/16/2019. They showed me the log for July-September safe inventory list, but no record was found under patient's name, meaning no valuable item was deposited during his previous stay. Called medical records and looked up his property list for 09/16/2019, but was reported that "hutchins knife" was not written at the list at all. Notified patient about the findings.
--- NOTE | 2019-09-29 13:25 | NUR ---
MS/VISUAL EDUCATION TEACHER NOTES Patient picked up by ambulance at 1325. Patient denies any pain/discomfort at this time, [facility] [address]. [address] Dr[address] Ruano's orders, we accessed his left pleurx for drainage, no output noted before discharge. Breathing even and non-labored on 4L via face mask, no SOB noted. No respiratory or cardiac distress noted. IV access removed with catheter intact. No infiltration/infection/bleeding noted at site. L chest port-a-cath and L pleurx noted with dry, intact, and clean dressing. Sensation from all peripheral extremities intact. Patient refused photos for discharge, wants to groom and get ready for discharge instead. No new skin impairment noted upon discharge. Patient left facility safely with all belongings and hospital documentations. Gave report to Nallely at [facility], discussed discharge instructions and plans for continuity of care. She verbalized understanding, offered our unit number for any more questions. Addendum: 09/29/19 at 1502 by ANAM RON RN Discussed discharge instructions and plan of care to patient, he verbalized understanding.
== END 2019-09-29 13:45 | DRG 180 ==
LOC: ER 14:53 → TELE 18:17 → MED 09-24 09:48
PROVIDERS: ADMIT Internal Medicine; ATTEND Internal Medicine
PROC: 0W9B3ZZ Drainage of Left Pleural Cavity, Percutaneous Approach (ICD-10-PCS; 2019-09-24)
PROC: 0B9P30Z Drainage of Left Pleura with Drainage Device, Percutaneous Approach (ICD-10-PCS; principal; 2019-09-27)
PROC: 02HV33Z Insertion of Infusion Device into Superior Vena Cava, Percutaneous Approach (ICD-10-PCS; 2019-09-27)
PROC: B518YZA Fluoroscopy of Superior Vena Cava using Other Contrast, Guidance (ICD-10-PCS; 2019-09-27)
DX: C34.92 Malignant neoplasm of unspecified part of left bronchus or lung (principal); J96.01 Acute respiratory failure with hypoxia; C79.31 Secondary malignant neoplasm of brain; J91.0 Malignant pleural effusion; I82.431 Acute embolism and thrombosis of right popliteal vein; I82.812 Embolism and thrombosis of superficial veins of left lower extremity; C79.51 Secondary malignant neoplasm of bone; N40.0 Benign prostatic hyperplasia without lower urinary tract symptoms; E78.5 Hyperlipidemia, unspecified; I10 Essential (primary) hypertension; J43.9 Emphysema, unspecified; Z86.718 Personal history of other venous thrombosis and embolism; K59.00 Constipation, unspecified; R59.0 Localized enlarged lymph nodes; F17.210 Nicotine dependence, cigarettes, uncomplicated
CPT/HCPCS: 36415; 71045-TC; 71250-TC; 73630-TC; 80048-TC; 83735-TC; 83880; 84100-TC; 84484-TC; 85025-TC; 85610-TC; 85730-TC; 87081-TC; 88108-TC; 88305-TC; 89051-TC; 93971-TC; 97116-TC; 97530-TC; C1788; G0378; J0690; J1644; J2704; J3010; J3490; J7050; J8540; U0003-CS

== ENCOUNTER 2019-10-05 08:49 | Inpatient (IN) | payer MEDICARE, OTHER ==
[~2019-10-05] VITALS: Ht 170.2 cm; Wt 74.8 kg
[~2019-10-05 08:49] MED LIST changes: +EUCA1LOZ37 MM; -LOSA50TA39 PO; +SODI88SP18 NS; +[UNRECOGNIZED DRUG - OTHER] PO; -[UNRECOGNIZED DRUG - OTHER] PO
--- NOTE | 2019-10-05 08:55 | NUR ---
BIB RA 79 FROM [facility], C/O SOB, DIZZINESS SINCE THURSDAY, TO ER BED 8, HOOKED TO EMBEDDED FIRMWARE ENGINEER AND POX, PLACED ON 3LPM OF O2 VIA NASAL CANNULA. O2 SATURATION TO 93%, CHANGED TO HOSP GOWN, PATIENT NOTED W LEFT UPPER CHEST PORT-A-CATH, AND LEFT MID CHEST PLEU EVAC. WARM BLANKET PROVIDED, PATIENT AAO x 3, NOTED WITH CRACKLES AND DIMINISHED LUNG SOUND AT LEFT SIDE. DR SIFUENTES AT BEDSIDE FOR EVAL
[2019-10-05] MEDS ORDERED: CEFEPIME 1 GM in IV D5W 50 ML IV ONE (09:00)
[2019-10-05] MEDS ORDERED: IV NS 0.9% 500 ML BAG IV ONE (09:00)
[2019-10-05] MEDS ORDERED: KETOROLAC TROMETHAMINE INJ 30 MG/ML VIAL IV ONE (09:00)
[2019-10-05] MEDS ORDERED: ALBUTEROL FS 2.5 MG/3 ML VIAL.NEB CONTNEB ONE (09:00)
[2019-10-05] MEDS ORDERED: DEXAMETHASONE SOD PHOSPHATE 10 MG/ML VIAL IV ONE (09:00)
[2019-10-05] MEDS ORDERED: AZITHROMYCIN 500 MG in IV D5W 250 ML IV ONE (09:00)
--- NOTE | 2019-10-05 09:05 | NUR ---
PER SNF, PATIENT'S LAST PLER-EVAC DRAIN DONE LAST 09/29/2019, LAST CHEMO 09/30/2019 AND LAST RADIATION THERAPY 10/03/2019
[2019-10-05] MEDS ORDERED: DEXAMETHASONE SOD PHOSPHATE 10 MG/ML VIAL ONE (09:06)
[2019-10-05] MEDS ORDERED: KETOROLAC TROMETHAMINE 15 MG/ML VIAL ONE (09:06)
--- NOTE | 2019-10-05 09:21 | NUR ---
MARTINEZ VIRUS SWAB DONE AND SENT TO LAB
[2019-10-05 09:29] LABS: BASOPHILS % (AUTO) 0.2 % (0.0-2.0); EOSINOPHILS % (AUTO) 0.9 % (0.0-6.0); HEMATOCRIT 43 % (39-51); HEMOGLOBIN 14.1 g/dL (13.5-17.5); LYMPHOCYTES # (AUTO) 0.8 /CMM (0.8-4.8); LYMPHOCYTES % (AUTO) 4.7 % (20.0-44.0); MEAN CORPUSCULAR HGB CONC 33 g/dl (31.0-36.0); MEAN CORPUSCULAR VOLUME 90 fL (80-96); MONOCYTES # (AUTO) 1.2 /CMM (0.1-1.30); NEUTROPHILS # (AUTO) 14.5 /CMM (1.8-8.9); NEUTROPHILS % (AUTO) 87.2 % (43.0-81.0); PLATELET COUNT (AUTO) 208 /CMM (150-450); WHITE BLOOD COUNT (AUTO) 16.7 K/uL (4.3-11.0)
--- NOTE | 2019-10-05 09:33 | NUR ---
RT AT BEDSIDE FOR BREATHING TX
[2019-10-05] MEDS ORDERED: ALBUTEROL FS 2.5 MG/3 ML VIAL.NEB ONE (09:34)
[2019-10-05 09:39] LABS: CALCIUM, SERUM 8.2 mg/dL (8.5-10.1); CARBON DIOXIDE 25 mmol/L (21-32); CHLORIDE 102 mmol/L (98-107); CREATININE 0.8 mg/dL (0.6-1.3); GLUCOSE 146 mg/dL (74-106); POTASSIUM 4.1 mmol/L (3.5-5.1); SODIUM SERUM 133 mmol/L (136-145); UREA NITROGEN, BLOOD 18 mg/dL (7-18)
[2019-10-05 09:44] LABS: ALANINE AMINOTRANSFERASE 25 U/L (12-78); ALBUMIN 2.3 g/dL (3.4-5.0); ALKALINE PHOSPHATASE 102 U/L (46-116); ASPARTATE AMINOTRANSFERASE 25 U/L (15-37); BILIRUBIN,DIRECT 0.1 mg/dL (0.0-0.2); BILIRUBIN,TOTAL 0.5 mg/dL (0.2-1.0); LIPASE 69 U/L (73-393); TOTAL PROTEIN, SERUM 6.3 g/dL (6.4-8.2)
[2019-10-05] MEDS ORDERED: PANT40TA2 PO (09:46)
[2019-10-05] MEDS ORDERED: AMLO5TAB9 PO (09:46)
[2019-10-05] MEDS ORDERED: RIVA10TA PO (09:46)
[2019-10-05] MEDS ORDERED: DEXA4TAB2 GT (09:46)
[2019-10-05] MEDS ORDERED: LEVE500T9 PO (09:46)
--- NOTE | 2019-10-05 10:22 | NUR ---
MARIANA GOULD DNP AT BEDSIDE
--- NOTE | 2019-10-05 10:26 | NUR ---
PLEUR-EVAC CONNECTED TO CONTAINER, LITTLE AMOUNT (APPROXIMATELY 10ML) OF CLEAR OUTPUT NOTED, ER MD AND ADMITTING AWARE.
--- NOTE | 2019-10-05 10:28 | NUR ---
CALLED NURSING SUPP FOR [facility] BED.
[2019-10-05] MEDS ORDERED: MAGNESIUM HYDROXIDE 30 ML UDC PO PRN (10:30)
[2019-10-05] MEDS ORDERED: ALBUTEROL FS 2.5 MG/3 ML VIAL.NEB NEB PRN (10:30)
[2019-10-05] MEDS ORDERED: TEMAZEPAM 15 MG CAPSULE PO PRN (10:30)
[2019-10-05] MEDS ORDERED: MORPHINE SULFATE INJ 2 MG/ML DISP.SYRIN IV PRN (10:30)
[2019-10-05] MEDS ORDERED: Z GUARD REMEDY 2 OZ OINT TP PRN (10:30)
--- NOTE | 2019-10-05 10:35 | NUR ---
PATIENT REFUSED INSERTION OF KAUR CATHETER, ER MD AND ADMITTING AWARE
[2019-10-05] MEDS ORDERED: predniSONE 10 MG TABLET PO ONE (11:00)
--- NOTE | 2019-10-05 11:33 | NUR ---
BED 325-1 [facility]
--- NOTE | 2019-10-05 11:41 | NUR ---
REPORT GIVEN TO MANISHA BENZ OF [facility]
--- NOTE | 2019-10-05 13:00 | NUR ---
RN OPENING NOTES RECEIVED PATIENT FROM ER, PLACED ON 3L MASK, IN STABLE CONDITION, VITAL SIGNS ARE STABLE. NO WOUNDS PRESENT ON ADMISSION, SCARRING NOTED ON LEFT CHEST WHERE THE CHEMO CATHETER IS PLACED. IV ON RIGHT AC #18 INTACT, PATENT, AND FLUSHED WELL. PATIENT IS ABLE TO MAKE NEEDS KNOWN, A/OX4, HISTORY OBTAINED FROM THE PATIENT. ALL PATIENT NEEDS MET, SAFETY WAS MAINTAINED, KEPT CLEAN AND DRY, WILL CONTINUE TO MONITOR CLOSELY.
--- NOTE | 2019-10-05 14:08 | NUR ---
rn note called pharmacy regarding the vancomycin. not available on the unit, will send it as soon as possible. camille administer when available.
[2019-10-05] MEDS: VANCOMYCIN 1.25 GM in IV D5W 250 ML IV SCH (14:25)
[2019-10-05 16:00] VITALS: BP 136/83
[2019-10-05] MEDS: VALACYCLOVIR HCL 500 MG TABLET PO SCH (17:00)
[2019-10-05] MEDS ORDERED: predniSONE 20 MG TABLET PO SCH (17:00)
[2019-10-05] MEDS: HYDROCODONE/APAP 5/325MG 1 EACH TABLET PO PRN (17:07)
[2019-10-05 18:32] LABS: APPEARANCE,URINE CLEAR (CLEAR); BILIRUBIN,URINE NEGATIVE (NEGATIVE); BLOOD, URINE LARGE Ery/uL (NEGATIVE); COLOR,URINE YELLOW (YELLOW); KETONES,URINE NEGATIVE (NEGATIVE); LEUKOCYTE ESTERASE ,URINE TRACE (NEGATIVE); NITRITE, URINE NEGATIVE (NEGATIVE); PROTEIN,URINE TRACE mg/dl (NEGATIVE); UGLUCOSE NEGATIVE (NEGATIVE); UROBILINOGEN,URINE 0.2 EU/dL (0.2)
[2019-10-05 18:42] LABS: RBC,URINE TOO NUMEROUS TO COUN /HPF (0-2)
[2019-10-05 18:43] LABS: BACTERIA,URINE 1+ /HPF (None Seen); HYALINE CASTS, URINE 0-2 /LPF (None Seen); SQUAMOUS EPITHELIAL CELL,UR Few /HPF (None Seen)
--- NOTE | 2019-10-05 19:29 | NUR ---
RN CLOSING NOTES PATIENT REMAINED IN STABLE CONDITION DURING MY SHIFT. NO ACUTE CHANGES TO PATIENT CONDITION. REMAINED ON 3L MASK WITH SATURATION AT 98%. NO SIGNS OF RESPIRATORY DISTRESS NOTED. PLEURAL EFFUSION DRAINING, 300ML DURING MY SHIFT. REFUSED KAUR CATHETER. PATIENT IS CONTINENT, ABLE TO MAKE NEEDS KNOWN. ALL SCHEDULED MEDICATION GIVEN ON TIME, SAFETY WAS MAINTAINED, CALL LIGHT WITHIN REACH, KEPT CLEAN AND DRY, ENDORSED TO PM NURSE FOR CONTINUITY OF CARE.
[2019-10-05 20:00] VITALS: BP 146/85
--- NOTE | 2019-10-05 20:00 | NUR ---
[facility] RN NOTES RECEIVED PATIENT IN BED, A/OX4 ABLE TO MAKE NEEDS KNOWN O.NO C/O OF PAIN AT OF THIS TIME. ON 3L MASK, NO SOB NO DISTRESS NOTED ON TELE MONITOR SR 76 , VITAL SIGNS ARE STABLE/AFEBRILE ON RIGHT CHEST PORTACATH .IV ON RIGHT AC #18 INTACT, PATENT, AND FLUSHED WELL.WITH RIGHT CHEST PLUEREX DRAIN . ALL DUE MEDS GIVEN ORDERED .ALL PATIENT NEEDS MET, SAFETY WAS MAINTAINED, KEPT CLEAN AND DRY, WILL CONTINUE TO MONITOR CLOSELY. Addendum: 10/06/19 at 0139 by JEFF CALI RN PTS PORTACATH IS ON THE LEFT CHEST NOT ON THE RIGHT ,ALSO PLEURAX DRAIN IS ALSO ON THE LEFT LOWER CHEST NOT ON THE RIGHT CHEST.
[2019-10-05] MEDS: CEFEPIME 1 GM in IV D5W 50 ML IV SCH (20:47)
[2019-10-05] MEDS: LEVETIRACETAM (250 MG) 250 MG TABLET PO SCH (20:48)
[2019-10-05] MEDS: TAMSULOSIN 0.4 MG CAP.SR.24H PO SCH (21:30)
[2019-10-05] MEDS ORDERED: ATORVASTATIN 10 MG TABLET PO SCH (22:00)
[2019-10-06] VITALS: BP 150/93
--- NOTE | 2019-10-06 | NUR ---
[facility] RN NOTES PTS COMFORTABLE IN BED NO C/O OF PAIN AT THIS TIME. WILL CONTINUE TO MONITOR.
--- NOTE | 2019-10-06 | NUR ---
anne rn notes Pts for mri brain wwo contrast ,consent signed by pts and checklist done pts verbalized understanding.
[2019-10-06] MEDS: VANCOMYCIN 1.25 GM in IV D5W 250 ML IV SCH ×2 (02:00→15:08)
[2019-10-06 04:00] VITALS: BP 152/87
[2019-10-06 05:50] VITALS: BP 150/93
--- NOTE | 2019-10-06 06:00 | NUR ---
anne rn notes pts remain in bed awake , pluerx drained with 5oocc output ,pts for mri brain with /without contrast today endorse pts with rn kurt day shift for continuity of care.
[2019-10-06] MEDS: MAG HYDROX/AL HYDROX/SIMETH 30 ML UDC PO PRN (06:19)
[2019-10-06 07:03] LABS: CALCIUM, SERUM 8.5 mg/dL (8.5-10.1); CREATININE 0.8 mg/dL (0.6-1.3); MAGNESIUM 2.8 mg/dL (1.8-2.4); PHOSPHORUS 2.3 mg/dL (2.5-4.9); POTASSIUM 4.3 mmol/L (3.5-5.1)
[2019-10-06 07:22] LABS: BASOPHILS % (AUTO) 0.1 % (0.0-2.0); HEMATOCRIT 46 % (39-51); HEMOGLOBIN 14.7 g/dL (13.5-17.5); LYMPHOCYTES # (AUTO) 0.7 /CMM (0.8-4.8); LYMPHOCYTES % (AUTO) 5.9 % (20.0-44.0); MEAN CORPUSCULAR HGB CONC 32 g/dl (31.0-36.0); MEAN CORPUSCULAR VOLUME 92 fL (80-96); MONOCYTES # (AUTO) 0.8 /CMM (0.1-1.30); MONOCYTES % (AUTO) 6.2 % (2.0-12.0); NEUTROPHILS % (AUTO) 87.8 % (43.0-81.0); PLATELET COUNT (AUTO) 218 /CMM (150-450); RED BLOOD CELL COUNT(AUTO) 4.97 MIL/uL (4.5-6.0); WHITE BLOOD COUNT (AUTO) 12.6 K/uL (4.3-11.0)
[2019-10-06] MEDS ORDERED: PANTOPRAZOLE 40 MG TABLET.DR PO SCH (07:30)
--- NOTE | 2019-10-06 07:30 | NUR ---
RECEIVED PATIENT IN BED. NO ACUTE DISTRESS NOTED. PATIENT ALERT & ORIENTED X3. PATIENT ON 3L OXYGEN VIA SIMPLE MASK, SATURATING WELL WITH BREATHING EVEN AND UNLABORED. PATIENT ON SOCIAL SERVICE LIAISON, SINUS RHYTHM NOTED. PATIENT IV ACCESS ON RIGHT ANTECUBITAL INTACT, PATENT, FLUSHED WELL. PATIENT PLUERAX DRAIN IN PLACE, INTACT, PATENT, DRAINING TO GRAVITY. PATIENT SAFETY MAINTAINED. CALL LIGHT WITHIN REACH. WILL CONTINUE TO MONITOR.
[2019-10-06 08:00] VITALS: BP 157/92
[2019-10-06] MEDS: VALACYCLOVIR HCL 500 MG TABLET PO SCH ×2 (08:18→16:24)
[2019-10-06] MEDS: CEFEPIME 1 GM in IV D5W 50 ML IV SCH ×2 (08:18→21:20)
[2019-10-06] MEDS: AMLODIPINE BESYLATE 5 MG TABLET PO SCH (08:19)
[2019-10-06] MEDS: LEVETIRACETAM (250 MG) 250 MG TABLET PO SCH ×2 (08:19→21:30)
[2019-10-06] MEDS: PANTOPRAZOLE 40 MG TABLET.DR PO SCH (08:19)
[2019-10-06] MEDS: DEXAMETHASONE 4 MG TABLET PO SCH ×2 (08:19→16:24)
[2019-10-06] MEDS: SERTRALINE HCL 25 MG TABLET PO SCH (08:19)
[2019-10-06] MEDS: HYDROCODONE/APAP 5/325MG 1 EACH TABLET PO PRN ×2 (08:20→21:27)
[2019-10-06] MEDS: ONDANSETRON HCL/PF 4 MG/2 ML VIAL IVP PRN (09:32)
[2019-10-06] MEDS ORDERED: IV NS 0.9% 250 ML IV ONE ×2 (12:20→18:24)
[2019-10-06] MEDS ORDERED: IOHEXOL-350 100 ML VIAL IV ONE ×2 (12:20→18:24)
[2019-10-06 16:00] VITALS: BP 156/90
[2019-10-06] MEDS ORDERED: GADOTERIDOL 279.3 MG/ML VIAL IV ONE (16:56)
[2019-10-06] MEDS ORDERED: K PHOS NEUTRAL 250 MG TABLET PO ONE (17:30)
--- NOTE | 2019-10-06 19:08 | NUR ---
PATIENT IN BED. NO ACUTE DISTRESS NOTED. PATIENT ALERT & ORIENTED X3. PATIENT ON 3L OXYGEN VIA SIMPLE MASK, SATURATING WELL WITH BREATHING EVEN AND UNLABORED. PATIENT ON BACCARAT DEALER, SINUS RHYTHM NOTED. PATIENT IV ACCESS ON LEFT ANTECUBITAL INTACT, PATENT, FLUSHED WELL. PATIENT PLUERAX DRAIN IN PLACE, INTACT, PATENT, DRAINING TO GRAVITY. PATIENT SAFETY MAINTAINED. CALL LIGHT WITHIN REACH. WILL ENDORSE PLAN OF CARE TO ONCOMING NURSE FOR CONTINUITY OF CARE
--- NOTE | 2019-10-06 19:37 | NUR ---
MS RN RECEIVE PT IN BED A/O X 3 STABLE, NO S/S OF DISTRESS, NO C/O OF PAIN, SAFETY MEASURES AT ALL TIMES. WILL CONT TO MONITOR PT
[2019-10-06 20:00] VITALS: BP_SYST 148; BP_SYST 162; BP_DIAS 75; BP_DIAS 99
[2019-10-06] MEDS: TAMSULOSIN 0.4 MG CAP.SR.24H PO SCH (21:26)
[2019-10-07 04:00] VITALS: BP 151/98
--- NOTE | 2019-10-07 05:30 | NUR ---
FF UP LAB DRAW FOR VANCO TROUGH AWAITING RESULT
--- NOTE | 2019-10-07 05:54 | NUR ---
MS RN NO SIGNIFICANT CHANGES THROUGHOUT THE SHIFT. ON 5L MASK 02 SAT 96%. LEFT LUNG PLEURX DRESSING INTACT AND DRY. NEEDS ATTENDED AND ANTICIPATED, KEPT CLEAN, DRY AND COMFORTABLE. NO SOB, NO C/O OF PAIN, AM CARE RENDERED, SAFETY MEASURES AT ALL TIMES. WILL ENDORSE TO NEXT SHIFT.
[2019-10-07 06:06] LABS: CALCIUM, SERUM 8.6 mg/dL (8.5-10.1); CREATININE 0.8 mg/dL (0.6-1.3); PHOSPHORUS 3.5 mg/dL (2.5-4.9); POTASSIUM 4.9 mmol/L (3.5-5.1)
[2019-10-07] MEDS: ONDANSETRON HCL/PF 4 MG/2 ML VIAL IVP PRN (06:06)
[2019-10-07] MEDS: VANCOMYCIN 1.25 GM in IV D5W 250 ML IV SCH (06:11)
--- NOTE | 2019-10-07 07:30 | NUR ---
MS RN OPEN NOTES PATIENT IS A/OX3, IN BED CALM. WITH NO SIGNS OF DISTRESS ON 5L OF OXYGEN MASK. IV R AC #18G INTACT. SAFETY MEASURES ARE IN PLACE BED IS IN LOW POSITION LOCKED AND SIDE RAILS UP X 2 FOR SAFETY. CALL LIGHT IS WITHIN REACH.WILL CONTINUE TO MONITOR.
[2019-10-07 08:00] VITALS: BP 158/90
[2019-10-07] MEDS: VALACYCLOVIR HCL 500 MG TABLET PO SCH ×2 (08:40→17:22)
[2019-10-07] MEDS: DEXAMETHASONE 4 MG TABLET PO SCH ×2 (08:41→17:22)
[2019-10-07] MEDS: LEVETIRACETAM (250 MG) 250 MG TABLET PO SCH ×2 (08:41→21:16)
[2019-10-07] MEDS: PANTOPRAZOLE 40 MG TABLET.DR PO SCH (08:41)
[2019-10-07] MEDS: SERTRALINE HCL 25 MG TABLET PO SCH (08:41)
[2019-10-07] MEDS: AMLODIPINE BESYLATE 5 MG TABLET PO SCH (08:42)
[2019-10-07] MEDS: CEFEPIME 1 GM in IV D5W 50 ML IV SCH (08:50)
[2019-10-07] MEDS: HYDROCODONE/APAP 5/325MG 1 EACH TABLET PO PRN ×2 (09:53→21:26)
[2019-10-07 16:00] VITALS: BP 123/82
[2019-10-07] MEDS ORDERED: VANCOMYCIN 1.25 GM in IV D5W 250 ML IV SCH ×4 (18:00)
--- NOTE | 2019-10-07 19:20 | NUR ---
MS RN: RECEIVED PATIENT Patient in bed, awake, A/O x4. Appears irritable, wants to move to another room. O2 4L via face mask, intermittent on room air, tolerating well. L Pleurax cath with gauze, not connected to bottle suction, educate patient with hand hygiene/catheter care, protect port with clean cover. Serosanguineous output 180ml from the drainage bottle, per patient he by himself drain the catheter to bottle and disconnect the catheter from it. Maintained safety.
--- NOTE | 2019-10-07 19:30 | NUR ---
RN CLOSED NOTES PATIENT IS A/OX4, IN BED CALM. WITH NO SIGNS OF DISTRESS ON 5L OF OXYGEN MASK. IV R AC #18G INTACT. PATIENT REMAINED STABLE THROUGH OUT SHIFT. PATIENT KEPT CLEAN AND DRY. TREATMENTS AND MEDICATIONS ADMINISTERED ANTICIPATED PER ORDER. SAFETY MEASURES ARE IN PLACE BED IS IN LOW POSITION LOCKED AND SIDE RAILS UP X 2 FOR SAFETY. CALL LIGHT IS WITHIN REACH.WILL ENDORSE TO AUDITING MANAGER NURSE.
[2019-10-07 20:00] VITALS: BP 112/86
[2019-10-07 20:30] VITALS: BP 112/86
--- NOTE | 2019-10-07 20:39 | NUR ---
RN NOTES DR. GOULD MADE AWARE OF PATIENT VTE SCORE OF 4.DOCTOR BRYANNA ORDERED LOVENOX 40MG SQ DAILY. ORDERS RECEIVED AND READ BACK. ORDERS CARRIED OUT, WILL ENDORSE TO INSERTING PRESS OPERATOR NURSE FOR ANISA.
[2019-10-07] MEDS ORDERED: ENOXAPARIN SODIUM 40 MG/0.4 ML DISP.SYRIN SQ SCH (21:00)
[2019-10-07] MEDS ORDERED: CEFEPIME 2 GM in IV D5W 100 ML IV SCH (21:00)
[2019-10-07] MEDS: TAMSULOSIN 0.4 MG CAP.SR.24H PO SCH (21:16)
--- NOTE | 2019-10-07 21:31 | NUR ---
MS RN: REFUSED LOVENOX INJECTION Anticoagulant Lovenox injection declined by patient, indication and possible side effect provided to patient, refused medication x3.
--- NOTE | 2019-10-08 06:54 | NUR ---
MS RN: END OF SHIFT REPORT Patient in bed, O2 sat 96% on 4L via face mask requested per patient to use for comfort. Tolerating in room air intermittently. Left Pleurx cath intact, clamped per patient. No output during the shift. Continue on Valtrex, Steroid, Off ABX, ID following. Will endorse to oncoming RN, follow up with surgeon/pulmo RE: Pleurx cath to bottle suction if drain? clamp? orders? Charge nurse made aware. Fall precaution maintained.
[2019-10-08 07:38] LABS: BASOPHILS # (AUTO) 0.1 /CMM (0.0-0.2); BASOPHILS % (AUTO) 0.3 % (0.0-2.0); HEMATOCRIT 47 % (39-51); HEMOGLOBIN 15.1 g/dL (13.5-17.5); LYMPHOCYTES # (AUTO) 0.8 /CMM (0.8-4.8); LYMPHOCYTES % (AUTO) 3.6 % (20.0-44.0); MEAN CORPUSCULAR HGB CONC 32 g/dl (31.0-36.0); MEAN CORPUSCULAR VOLUME 91 fL (80-96); MONOCYTES % (AUTO) 4.4 % (2.0-12.0); NEUTROPHILS % (AUTO) 91.7 % (43.0-81.0); PLATELET COUNT (AUTO) 279 /CMM (150-450); RED BLOOD CELL COUNT(AUTO) 5.17 MIL/uL (4.5-6.0); WHITE BLOOD COUNT (AUTO) 22.9 K/uL (4.3-11.0)
[2019-10-08 08:00] VITALS: BP 158/98
--- NOTE | 2019-10-08 08:00 | NUR ---
RN NOTES RECEIVED PATIENT IN THE BED A/O X3, ON MASK 4L, NO ACUTE RESPIRATORY DISTRESS, V/S WNL, PATIENT HAS JIMENEZ'S PALSIES, WAS COMPLAINING PAIN ON LEFT UPPER FLANK REGION, HAS CHEST PLEURX DRAIN AND WILL DRAIN Q 42 HR BY PATIENT , OR NURSE. ADMINISTERED SCHEDULED MEDICATION, DISTENDED ABDOMEN, PENTACATH LEFT CHEST. PATIENT HAS NI S/S OF SEIZURE, USING URINAL OR BRP, CALL LIGHT WITHIN TO REACH. CONTINUED MONITORING.
[2019-10-08] MEDS: HYDROCODONE/APAP 5/325MG 1 EACH TABLET PO PRN ×2 (08:27→22:13)
[2019-10-08] MEDS: VALACYCLOVIR HCL 500 MG TABLET PO SCH ×2 (08:27→18:12)
--- NOTE | 2019-10-08 08:27 | NUR ---
RN NOTES ADMINISTERED NARCO 5/325 MG PO PRN FOR LEFT FLANK REGION 08/23 PER PATIENT REQUEST, V/S TAKEN BP 158/98,P-77, O2-94 MASK.
[2019-10-08] MEDS: SERTRALINE HCL 25 MG TABLET PO SCH (08:28)
[2019-10-08] MEDS: LEVETIRACETAM (250 MG) 250 MG TABLET PO SCH ×2 (08:29→21:00)
[2019-10-08] MEDS: PANTOPRAZOLE 40 MG TABLET.DR PO SCH (08:29)
[2019-10-08] MEDS: DEXAMETHASONE 4 MG TABLET PO SCH ×2 (08:29→18:12)
[2019-10-08] MEDS: AMLODIPINE BESYLATE 5 MG TABLET PO SCH (08:29)
[2019-10-08 08:57] LABS: CALCIUM, SERUM 8.9 mg/dL (8.5-10.1); CREATININE 0.7 mg/dL (0.6-1.3); POTASSIUM 4.5 mmol/L (3.5-5.1)
[2019-10-08] MEDS ORDERED: APIXABAN 2.5 MG TABLET PO SCH (10:12)
--- NOTE | 2019-10-08 13:00 | NUR ---
RN NOTES PATIENT STABLE RESTING IN THE BED, MEDICATION WERE ADMINISTERED FOR PAIN EFFECTIVE.
[2019-10-08 16:00] VITALS: BP 157/92
[2019-10-08] MEDS ORDERED: AMOX/CLAVULANATE 875 MG TABLET PO SCH ×2 (18:00→21:00)
--- NOTE | 2019-10-08 18:00 | NUR ---
RN NOTES PATIENT IN THE BED , ADMINISTERED SCHEDULED MEDICATION, REFUSED PAIN, EDUCATED PATIENT USING UA CULTURE SPECIMEN, AND GIVEN CONTAINER TO COLLECT. ENDORSED ONCOMING NURSE FOLLOW PLAN OF CARE.
--- NOTE | 2019-10-08 19:10 | NUR ---
MS RN OPENING NOTES: RECEIVED PATIENT IN BED, AWAKE, A/O X4. WITH LEFT CHEST PLEURX INTACT, DRESSING IS CLEAN AND DRY AND INTACT, PATIENT SAID THAT HE DRAINED IT YESTERDAY AND HE WILL DRAIN IT AGAIN TOMORROW. WITH LEFT CHEST GIOVANNI CATH CLEAN AND DRY.ABDOMEN IS DISTENDED.URINE FOR UA COLLECTED AND PLACED IT ON THE REFRIGERATOR FOR THE LAB PERSONNEL TO BE PICKED UP, LABELED WITH PATIENT'S NAME. PATIENT IS AMBULATORY, STEADY, PATIENT REFUSED THE BED ALARM.
[2019-10-08 20:00] VITALS: BP 148/80
--- NOTE | 2019-10-08 20:44 | NUR ---
REPORTS GIVEN TO DEMAR MENJIVAR FOR CONTINUATION OF CARE.
--- NOTE | 2019-10-08 21:02 | NUR ---
REPORTS GIVEN TO DEMAR IVY FOR CONTINUITY OF CARE.
--- NOTE | 2019-10-08 21:20 | NUR ---
MS/RN NOTES: REPORT RECEIVED FROM DEMAR DARBY FOR ANISA. PT STABLE AT THIS TIME. WILL CONTINUE TO MONITOR ACCORDINGLY.
[2019-10-08] MEDS: TAMSULOSIN 0.4 MG CAP.SR.24H PO SCH (22:00)
--- NOTE | 2019-10-08 22:00 | NUR ---
MS/RN NOTES: PT REFUSED TO TAKE PO MEDS KEPPRA 500MG AND FLOMAX 0.4 MG CAP. PER PT "I'VE BEEN TAKING ALL THESE MEDS THAT THESE DOCTORS WANT ME TO TAKE BUT THEY DON'T HELP AND DON'T DO ANYTHING". EXPLAINED TO THE PT THE RISKS AND BENEFITS X3. STILL REFUSED X3. WILL CONTINUE TO MONITOR.
--- NOTE | 2019-10-08 22:13 | NUR ---
MS/RN NOTES: PT. COMPLAINS OF GEN PAIN. REQUESTED NORCO. VSS. ADMINISTERED NORCO 5/325 PO ORDERED FOR PAIN. WILL CONTINUE TO MONITOR.
[2019-10-09] MEDS: MAG HYDROX/AL HYDROX/SIMETH 30 ML UDC PO PRN (01:25)
--- NOTE | 2019-10-09 01:25 | NUR ---
MS/RN NOTES: PT COMPLAINED OF FEELING BLOATED AND REQUESTED MAALOX. ADMINISTERED MAALOX 30ML PO. TOLERATED WELL. WILL CONTINUE TO MONITOR.
--- NOTE | 2019-10-09 05:30 | NUR ---
MS/RN NOTES: PT REFUSED BLOOD DRAW FROM LAB. STATES HE WANTS TO TALK TO THE DOCTOR FIRST IN THE MORNING.
--- NOTE | 2019-10-09 06:42 | NUR ---
MS/RN CLOSING NOTES: PATIENT REMAINS IN BED, A/O X4. WITH LEFT CHEST PLEURX INTACT, DRESSING IS CLEAN AND DRY AND INTACT, PATIENT SAID THAT HE DRAINED IT YESTERDAY. TO BE DRAINED Q46HRS ORDERED BY MARIANA GOULD NP. WITH LEFT CHEST GIOVANNI CATH CLEAN AND DRY. PATIENT IS AMBULATORY, STEADY, PATIENT REFUSED THE BED ALARM. SAFETY MEASURES IN PLACE. BED IN LOW, LOCKED POSITION. SR UP X2. WILL ENDORSE TO DAY SHIT FOR ANISA.
--- NOTE | 2019-10-09 07:30 | NUR ---
MS/RN NOTE THE PATIENT IS RECEIVED IN BED. THE PATIENT IS ALERT AND ORIENTED X4. RECEIVING OXYGEN AT 5L/MIN VIA SIMPLE MASK. DENIES SOB. RESPIRATION REGULAR AND UNLABORED. DENIES PAIN. NOTED LEFT CHEST PLEURX PRESENT WITH DRY DRESSING IN PLACE. LEFT UPPER ARM G 20 PATENT AND SALINE LOCKED. BED LOW AND LOCKED. SIDE RAILS UP X3. CALL LIGHT WITHIN REACH. WILL CONTINUE TO MONITOR.
[2019-10-09 08:00] VITALS: BP 153/88
[2019-10-09] MEDS: LEVETIRACETAM (250 MG) 250 MG TABLET PO SCH ×3 (09:00→21:00)
[2019-10-09] MEDS: VALACYCLOVIR HCL 500 MG TABLET PO SCH ×3 (09:00→17:00)
[2019-10-09] MEDS ORDERED: POLYETHYLENE GLYCOL 3350 17 GM POWD.PACK PO PRN (09:00)
[2019-10-09] MEDS: SERTRALINE HCL 25 MG TABLET PO SCH (09:20)
[2019-10-09] MEDS: AMLODIPINE BESYLATE 5 MG TABLET PO SCH (09:21)
[2019-10-09] MEDS: LIPASE/PROTEASE/AMYLASE 1 EACH CAPSULE.DR PO SCH ×3 (09:21→17:36)
[2019-10-09] MEDS: DEXAMETHASONE 4 MG TABLET PO SCH ×2 (09:21→17:36)
[2019-10-09] MEDS: PANTOPRAZOLE 40 MG TABLET.DR PO SCH (09:22)
[2019-10-09] MEDS: DOCUSATE SODIUM 100 MG CAPSULE PO SCH (09:23)
--- NOTE | 2019-10-09 13:18 | NUR ---
MS/RN NOTE THE PATIENT REFUSED BLOOD DRAW FOR AM LAB DESPITE EXPLAINING RISKS AND BENEFITS MULTIPLE TIMES. ASHLEE GOULD IS MADE AWARE.
--- NOTE | 2019-10-09 14:48 | NUR ---
MS/RN NOTE PER PATIENT LAST TIME DRAINAGE FROM LEFT PLEURX WAS DONE ON 10/06. LEFT PLEURX CATH CONNECTED TO THE BOTTLE FOR DRAINAGE. DRESSING AT THE PLEURX IN PLACE AND DRY. WILL CONTINUE TO MONITOR.
[2019-10-09 16:00] VITALS: BP 166/97
[2019-10-09] MEDS: ACETAMINOPHEN 325 MG TABLET PO PRN (18:47)
--- NOTE | 2019-10-09 18:50 | NUR ---
MS/RN NOTE THE PATIENT COMPLAINS OF GENERALIZED BODY PAIN 04/25. TYLENOL 650 MG PO GIVEN. WILL CONTINUE TO MONITOR.
--- NOTE | 2019-10-09 18:57 | NUR ---
MS/RN NOTE THE PATIENT IS ALERT AND ORIENTED X4. DENIES SOB. RESPIRATION REGULAR AND UNLABORED. PATIENT COMPLAINS OF GENERALIZED BODY PAIN /. TYLENOL 650 MG GIVEN AND WAITING FOR PAIN REASSESSMENT IN 1 HOUR. THE PATIENT IN NO APPARENT DISTRESS. LEFT CHEST PORTCATH PRESENT. HAIDER G 20 PATENT AND SALIEN LOCKED. LEFT CHEST PLUREX AND DRESSING IN PLACE AND DRY. BED LOW AND LOCKED. SIDE RAILS UP X2. CALL LIGHT WITHIN REACH. WILL ENDORSE TO NIGHTS SHIFT.
--- NOTE | 2019-10-09 19:41 | NUR ---
RECEIVED A CALL FROM DR DOWELL, UPDATED HER WITH THE PATIENT'S STATUS, AND PLEURX DRAINED 100ML.
[2019-10-09 20:00] VITALS: BP 161/95
[2019-10-09] MEDS: TAMSULOSIN 0.4 MG CAP.SR.24H PO SCH (21:40)
--- NOTE | 2019-10-09 21:42 | NUR ---
PATIENT REFUSED KEPPRA AND FLOMAX MEDS. PATIENT ADVISED THE IMPORTANCE OF TAKING THE MED.
--- NOTE | 2019-10-09 23:45 | NUR ---
PATIENT'S BP 168/109, HR 67, NOTIFIED VELASQUEZ ANN, ALSO INFORMED THAT THE PATIENT REFUSED HIS KEPPRA AND FLOMAX MEDS.
--- NOTE | 2019-10-09 23:50 | NUR ---
RIGHT UPPER SIDERAIL IS DOWN, PATIENT REFUSED TO PUT IT UP, EXPLAINED TO THE PATIENT IT NEEDS TO BE UP FOR SAFETY. PATIENT'S BELONGINGS ON THE FLOOR, PATIENT DOES NOT WANT THEM TO BE PICKED UP. PATIENT REFUSED BED ALARM. CALL LIGHT WITHIN REACH. BED IN LOWEST AND LOCKED POSITION.
[2019-10-09 23:58] VITALS: BP 168/109
[2019-10-10] MEDS ORDERED: hydrALAZINE HCL 10 MG TABLET PO ONE
[2019-10-10 04:04] VITALS: BP 159/93
--- NOTE | 2019-10-10 07:10 | NUR ---
MS RN CLOSING NOTES: PATIENT IN BED, ASLEEP. A/O X4. CALL LIGHT WITHIN REACH. BED IN LOWEST AND LOCKED POSITION. AMBULATORY. TYLENOL 650MG PO GIVEN FOR BACK PAIN. NO SOB.
--- NOTE | 2019-10-10 07:30 | NUR ---
RN Opening note Received patient in bed, obtunded, able to responds physical stimuli. Pt is on ventilator, no distress observed, respiratory even and unlabored. Skin is warm to touch, kept clean/dry. Keep bed in locked with elevated HOB for ensure airway, and aspiration precaution. Call light within reach, will continue to monitor.
[2019-10-10 08:00] VITALS: BP 160/100
[2019-10-10] MEDS ORDERED: BISACODYL SUPP (10 MG) 10 MG/SUPP.RECT SUPP.RECT RC ONE (08:30)
[2019-10-10] MEDS: LIPASE/PROTEASE/AMYLASE 1 EACH CAPSULE.DR PO SCH ×3 (08:57→17:09)
[2019-10-10] MEDS: DOCUSATE SODIUM 100 MG CAPSULE PO SCH (08:57)
[2019-10-10] MEDS: SERTRALINE HCL 25 MG TABLET PO SCH (08:57)
[2019-10-10] MEDS: LEVETIRACETAM (250 MG) 250 MG TABLET PO SCH ×2 (08:57→21:00)
[2019-10-10] MEDS: VALACYCLOVIR HCL 500 MG TABLET PO SCH ×2 (08:57→17:08)
[2019-10-10] MEDS: DEXAMETHASONE 4 MG TABLET PO SCH ×2 (08:57→17:09)
[2019-10-10] MEDS: AMLODIPINE BESYLATE 5 MG TABLET PO SCH (08:58)
[2019-10-10] MEDS: PANTOPRAZOLE 40 MG TABLET.DR PO SCH (08:59)
[2019-10-10] MEDS: ACETAMINOPHEN 325 MG TABLET PO PRN ×2 (14:44→21:02)
[2019-10-10 16:00] VITALS: BP 136/87
[2019-10-10] MEDS ORDERED: predniSONE 50 MG TABLET PO ONE (17:00)
--- NOTE | 2019-10-10 18:57 | NUR ---
RN Closing Patient in bed comfortably, finished dinner, does no c/o pain or distress. Reparatory even and unlabored oxygen mask at 4LPM, skin is warm to touch, kept clean, dry. Keep bed in locked with elevated HOB for ensure airway and aspiration precaution. Call light within reach, will endorse night shift supervisor.
--- NOTE | 2019-10-10 19:20 | NUR ---
RN medsurg opening notes Received Pt in bed and awake. Pt is sitting in bed comfortably watching TV. Respiration is normal in simple mask 5 L/min. No SOB. No S/S of distress noted. HAIDER# 20 is clean, intact and SL. Noted L chest pleurx is clean and dressing is intact. Safety precautions is maintained. Bed at low position, brakes locked, side rails upX3 and call light is within reach. Will continue to monitor.
[2019-10-10 20:00] VITALS: BP 143/89
[2019-10-10] MEDS: TAMSULOSIN 0.4 MG CAP.SR.24H PO SCH (21:06)
--- NOTE | 2019-10-10 21:06 | NUR ---
RN medsurg notes Pt refused meds keppra 250mg/2 tabs and flomax 0.4 mg/1 tab. Made aware risks and benefits. Pt keep refusing and pt gets agitated easily. Pt stated " How come i don't get the same nurse!" They know about my meds!" Will continue to monitor.
--- NOTE | 2019-10-10 22:00 | NUR ---
RN medsurg closing notes Transferred continuity of care to DEMAR Blount.
--- NOTE | 2019-10-10 22:17 | NUR ---
MS/RN NOTES RECEIVED ENDORSEMENT FROM DEMAR WEEMS FOR ANISA PATIENT ABLE TO VERBALIZE NEEDS, PER LAB REFUSED TO HAVE BLOOD DRAWN, MADE AWARE AND DISCUSS PROS AND CONS, ALSO REFUSED MEDICATION SUCH KEPPRA, MADE AWARE AND VERBALZIED UNDERSTANDING, NON COMPLIANT AND ABLE TO MAKE NEEDS, KNOWN, TO MONITOR FOR ANY CHANGES, PATIENT PREFER TO HAVE BED BE HIGH TO MONITOR.
--- NOTE | 2019-10-11 | NUR ---
MS/RN NOTES PATIENT IN BED, ASLEEP ABLE TO AROUSE AND VERBALIZE NEEDS, NO CONCERNS AT THIS TIME, MONITORING FOR ANY CHANGES. SIMPLE MASK ON.
--- NOTE | 2019-10-11 05:23 | NUR ---
MS/RN NOTES PATIENT MONITORED FOR SAFETY, IN BED WITH SIMPLE MASK ON, REFUSE BED ALARM AND BELONGINGS IN THE FLOOR, CALL LIGHTS WITHIN REACH, TO MONITORED.
--- NOTE | 2019-10-11 06:19 | NUR ---
316-2 MS/RN NOTES PATIENT ABLE TO SLEEP DURING THE NIGHT, ATTENDED TO ALL NEEDS AND REPORTED TO MD ANN REGARDING PATIENT REFUSALTO TAKE SEIZUREMEDICATIONS AND REFUSAL OF LAB TEST. PATIENT PROVIDED EDUCATION AND IMPORTANCE ON MEDICATION COMPLIANCE AND TREATMENT, VERBALIZED UNDERSTANDING. MONITORED FOR SAFETY PATIENT USES SIMPLE MASK AT 5 LITER, CAN AMBULATE WITH SUPERVISION. WILL ENDORSE TO AM RN FOR ANISA.
--- NOTE | 2019-10-11 06:31 | NUR ---
MS/RN NOTES PATIENT SLEPT DURING THE NIGHT, ALERT, ORIENTED X4, WITH OXYGEN MASK AT 5LITER, BED LOCKED, CALL LIGHTS WITHIN REACH. FLUIDS OFFERED AND PROVIDED, USES URINAL,WITH IV SITE ON HAIDER GAUGE 20 PATENT AND INTACT WITH LEFT CHEST PORT MD AWARE REGARDING NON COMPLIANCE WITH SEIZURE MEDS AND BLOOD TESTSW AND PORT ACATH AND LEFT CHEST PLEUR X THAT IS DRAINED EVERY OTHER DAY PER MD DOWELL, PATIENT ABLE TO SELF DRAIN WITH ASSIST.
[2019-10-11 08:00] VITALS: BP 151/91
--- NOTE | 2019-10-11 08:10 | NUR ---
RN MED/SURG INITIAL NOTE RECEIVED PT IN BED AWAKE, ALERT AND ORIENTED x4, PT HAS A LEFT CHEST PORT CATH, HAIDER 20' H/L INTACT AND PATENT, PT ON 5L OF OXYGEN VIA MASK SATURATING AT 93%, NO SOB OR DISTRESS NOTED AT THIS TIME, HOB BED ELEVATED TOLERATED, CALL LIGHT WITHIN REACH AND FUNCTIONING, BED LOCKED AND IN LOWEST POSITION, WILL CONTINUE TO MONITOR AND ASSESS PT
[2019-10-11] MEDS: LIPASE/PROTEASE/AMYLASE 1 EACH CAPSULE.DR PO SCH ×3 (08:58→17:16)
[2019-10-11] MEDS: SERTRALINE HCL 25 MG TABLET PO SCH (08:58)
[2019-10-11] MEDS: DOCUSATE SODIUM 100 MG CAPSULE PO SCH (08:58)
[2019-10-11] MEDS: DEXAMETHASONE 4 MG TABLET PO SCH ×2 (08:59→16:39)
[2019-10-11] MEDS: LEVETIRACETAM (250 MG) 250 MG TABLET PO SCH ×2 (08:59→12:16)
[2019-10-11] MEDS: VALACYCLOVIR HCL 500 MG TABLET PO SCH ×2 (09:02→16:39)
[2019-10-11] MEDS: AMLODIPINE BESYLATE 5 MG TABLET PO SCH (09:02)
[2019-10-11] MEDS: HYDROCODONE/APAP 5/325MG 1 EACH TABLET PO PRN (09:02)
[2019-10-11] MEDS: PANTOPRAZOLE 40 MG TABLET.DR PO SCH (09:09)
--- NOTE | 2019-10-11 13:57 | NUR ---
RN note GOT A CALL FROM NAVY SENIOR OFFICER, PT MIGHT GET D/C TODAY, TITRATE OXYGEN TO 2.5L PER MD ORDER FOR PLACEMENT
[2019-10-11 16:00] VITALS: BP 153/91
[2019-10-11] MEDS ORDERED: predniSONE 20 MG TABLET PO ONE (17:00)
[2019-10-11] MEDS ORDERED: LIPA1CAP27 PO (17:01)
[2019-10-11] MEDS ORDERED: VALA500T PO (17:01)
[2019-10-11] MEDS: ACETAMINOPHEN 325 MG TABLET PO PRN (17:59)
--- NOTE | 2019-10-11 17:59 | NUR ---
rn notes administered Tylenol 650 mg po prn for lower back pain per patient request.
--- NOTE | 2019-10-11 18:02 | NUR ---
RN D/C NOTES PT D/C AT [address] [facility], PT ALERT ORIENTED, NO DISTRESS NOTED, V/S WITHIN NORMAL RANGE, TYLENOL 650MG GIVEN FOR PAIN REQUESTED, PT ON 2L OXYGEN VIA N/C, NO SOB OR RESPIRATORY DISTRESS NOTED, MED RECONCILIATION AND D/C ORDER REVIEWED AND EXPLAINED TO PT, REPORT GIVEN TO SNG DEMAR WHITNEY, RN VERBALIZED UNDERSTANDING, PT HAS HIS BELONGINGS, FAMILY NOTIFIED, PT SIGN PAPER WORK, PT PICKED UP BY AMBULANCE
[2019-10-12] MEDS ORDERED: predniSONE 10 MG TABLET PO ONE (17:00)
[2019-10-13] MEDS ORDERED: predniSONE 20 MG TABLET PO ONE (17:00)
[2019-10-14] MEDS ORDERED: predniSONE 10 MG TABLET PO ONE (17:00)
== END 2019-10-11 18:06 | DRG 180 ==
LOC: ER 08:51 → TELE 12:19 → MED 10-06 12:12
PROVIDERS: ADMIT Nurse Practitioner Acute Care; ATTEND Nurse Practitioner Acute Care
DX: C34.90 Malignant neoplasm of unspecified part of unspecified bronchus or lung (principal); J96.01 Acute respiratory failure with hypoxia; J15.9 Unspecified bacterial pneumonia; A41.9 Sepsis, unspecified organism; N39.0 Urinary tract infection, site not specified; J91.0 Malignant pleural effusion; D68.69 Other thrombophilia; C79.31 Secondary malignant neoplasm of brain; N40.0 Benign prostatic hyperplasia without lower urinary tract symptoms; F17.210 Nicotine dependence, cigarettes, uncomplicated; F32.9 Major depressive disorder, single episode, unspecified; G51.0 Bell's palsy; J42 Unspecified chronic bronchitis; Z79.899 Other long term (current) drug therapy; Z86.718 Personal history of other venous thrombosis and embolism; E78.5 Hyperlipidemia, unspecified; K59.00 Constipation, unspecified; I10 Essential (primary) hypertension; Z79.01 Long term (current) use of anticoagulants; Z85.118 Personal history of other malignant neoplasm of bronchus and lung
CPT/HCPCS: 36415; 70450-TC; 70553-TC; 71045-TC; 74178; 76705-TC; 80048-TC; 80076-TC; 80202-TC; 81000-TC; 83690-TC; 83735-TC; 84100-TC; 84484-TC; 85025-TC; 85730-TC; 87040-TC; 87081-TC; 87086-TC; 93307-TC; 93970-TC; 97116-TC; 97530-TC; A9579; G0378; J0456; J0692; J1100; J1650; J1885; J2405; J3370; J7040; J7050; J7060; J8540; Q9967

== ENCOUNTER 2019-10-16 14:36 | Inpatient (IN) | payer MEDICARE, OTHER ==
[~2019-10-16] VITALS: Ht 170.2 cm; Wt 73.7 kg
[~2019-10-16 14:36] MED LIST changes: +AMLO5TAB9 PO; +DEXA4TAB2 GT; -EUCA1LOZ37 MM; +LEVE500T9 PO; +LIPA1CAP27 PO; +PANT40TA2 PO; +RIVA10TA PO; +VALA500T PO
[2019-10-16] MEDS ORDERED: IV NS 0.9% 500 ML BAG IV ONE (15:00)
[2019-10-16 15:06] LABS: BASOPHILS % (AUTO) 0.2 % (0.0-2.0); EOSINOPHILS % (AUTO) 0.5 % (0.0-6.0); HEMATOCRIT 49 % (39-51); HEMOGLOBIN 16.2 g/dL (13.5-17.5); LYMPHOCYTES # (AUTO) 0.8 /CMM (0.8-4.8); LYMPHOCYTES % (AUTO) 4.9 % (20.0-44.0); MEAN CORPUSCULAR HGB CONC 33 g/dl (31.0-36.0); MEAN CORPUSCULAR VOLUME 91 fL (80-96); MONOCYTES # (AUTO) 1.2 /CMM (0.1-1.30); NEUTROPHILS # (AUTO) 14.9 /CMM (1.8-8.9); NEUTROPHILS % (AUTO) 87.4 % (43.0-81.0); PLATELET COUNT (AUTO) 128 /CMM (150-450); RED BLOOD CELL COUNT(AUTO) 5.38 MIL/uL (4.5-6.0)
[2019-10-16 15:14] LABS: CALCIUM, SERUM 8.5 mg/dL (8.5-10.1); CARBON DIOXIDE 23 mmol/L (21-32); CHLORIDE 102 mmol/L (98-107); GLUCOSE 130 mg/dL (74-106); POTASSIUM 3.9 mmol/L (3.5-5.1); SODIUM SERUM 136 mmol/L (136-145); UREA NITROGEN, BLOOD 25 mg/dL (7-18)
[2019-10-16 15:20] LABS: ALANINE AMINOTRANSFERASE 37 U/L (12-78); ALBUMIN 2.8 g/dL (3.4-5.0); ALKALINE PHOSPHATASE 140 U/L (46-116); ASPARTATE AMINOTRANSFERASE 26 U/L (15-37); BILIRUBIN,DIRECT 0.2 mg/dL (0.0-0.2); BILIRUBIN,TOTAL 0.7 mg/dL (0.2-1.0); TOTAL PROTEIN, SERUM 6.5 g/dL (6.4-8.2)
[2019-10-16 16:39] LABS: EOSINOPHILS % (MANUAL) 1 % (0-4); LYMPHOCYTES % (MANUAL) 3 % (16-48); MONOCYTES % (MANUAL) 4 % (0-11.0); NEUTROPHILS % (MANUAL) 92 (42-76)
--- NOTE | 2019-10-16 16:59 | NUR ---
RAPID COVID SWAB DONE AND SENT TO LAB
--- NOTE | 2019-10-16 17:03 | NUR ---
PAGED EPIC PARTS SALES ASSOCIATE.
--- NOTE | 2019-10-16 17:19 | NUR ---
Patient awake alert slow speaking non distress @ this time vitals taken and filed noted patient has multiple bilateral arms bruises stated from previous admission .
[2019-10-16] MEDS ORDERED: IV NS 0.9% 1,000 ML IV PRN (17:46)
[2019-10-16] MEDS ORDERED: MAGNESIUM HYDROXIDE 30 ML UDC PO PRN (18:00)
[2019-10-16] MEDS ORDERED: MAG HYDROX/AL HYDROX/SIMETH 30 ML UDC PO PRN (18:00)
[2019-10-16] MEDS ORDERED: Z GUARD REMEDY 2 OZ OINT TP PRN (18:00)
[2019-10-16] MEDS ORDERED: ACETAMINOPHEN 325 MG TABLET PO PRN (18:00)
[2019-10-16] MEDS ORDERED: MORPHINE SULFATE INJ 2 MG/ML DISP.SYRIN IV PRN (18:00)
[2019-10-16] MEDS ORDERED: ZOLPIDEM TARTRATE 5 MG TABLET PO PRN (18:00)
[2019-10-16] MEDS ORDERED: ONDANSETRON HCL/PF 4 MG/2 ML VIAL IVP PRN (18:00)
--- NOTE | 2019-10-16 18:12 | NUR ---
COVID RESULT: NEGATIVE
--- NOTE | 2019-10-16 18:33 | NUR ---
Report given to Carri Winkler .
--- NOTE | 2019-10-16 19:32 | NUR ---
BACK UP SCAN COORDINATOR OPENING NOTES PT RECEIVED, A/OX4. ON ROOM AIR, BREATHING EVEN AND UNLABORED. DENIES SOB WHILE AT REST. SOB WITH EXERTION. IN NO ACUTE DISTRESS. LEFT LATERAL CHEST WITH PLEUREX CATHETER. DRESSING C/D/I. LEFT UPPER CHEST INCISION SITE NOTED FOR PORT A CATH. IV TO RIGHT WRIST PATENT AND INTACT. ON JEWEL BEARING TURNER SHOWING NSR, HR 70. NO NEEDS EXPRESSED AT THIS TIME. BED IN LOW/LOCKED POSITION WITH CALL LIGHT IN REACH. BED ALARM ON.
[2019-10-16 20:00] VITALS: BP 123/81
[2019-10-16] MEDS ORDERED: CEFTRIAXONE 1 G in IV D5W 50 ML IV SCH (20:00)
[2019-10-16] MEDS ORDERED: AZITHROMYCIN 500 MG in IV D5W 250 ML IV SCH (21:00)
[2019-10-16] MEDS: ATORVASTATIN 10 MG TABLET PO SCH (22:32)
[2019-10-16] MEDS: TAMSULOSIN 0.4 MG CAP.SR.24H PO SCH (22:32)
[2019-10-16] MEDS: LEVETIRACETAM (250 MG) 250 MG TABLET PO SCH (22:32)
[2019-10-16] MEDS: LIPASE/PROTEASE/AMYLASE 1 EACH CAPSULE.DR PO SCH (22:32)
[2019-10-17] VITALS: BP 111/70
[2019-10-17 00:05] VITALS: BP 111/70
[2019-10-17 04:00] VITALS: BP 121/74
[2019-10-17 06:47] LABS: BASOPHILS % (AUTO) 0.2 % (0.0-2.0); EOSINOPHILS % (AUTO) 0.7 % (0.0-6.0); HEMATOCRIT 46 % (39-51); HEMOGLOBIN 14.9 g/dL (13.5-17.5); LYMPHOCYTES # (AUTO) 0.7 /CMM (0.8-4.8); LYMPHOCYTES % (AUTO) 4.8 % (20.0-44.0); MEAN CORPUSCULAR HGB CONC 33 g/dl (31.0-36.0); MEAN CORPUSCULAR VOLUME 92 fL (80-96); MONOCYTES # (AUTO) 1.1 /CMM (0.1-1.30); MONOCYTES % (AUTO) 8.2 % (2.0-12.0); NEUTROPHILS % (AUTO) 86.1 % (43.0-81.0); PLATELET COUNT (AUTO) 123 /CMM (150-450); RED BLOOD CELL COUNT(AUTO) 4.99 MIL/uL (4.5-6.0); WHITE BLOOD COUNT (AUTO) 13.9 K/uL (4.3-11.0)
[2019-10-17 06:48] LABS: ALBUMIN 2.3 g/dL (3.4-5.0); BILIRUBIN,TOTAL 0.7 mg/dL (0.2-1.0); CALCIUM, SERUM 7.4 mg/dL (8.5-10.1); CREATININE 0.8 mg/dL (0.6-1.3); MAGNESIUM 2.5 mg/dL (1.8-2.4); PHOSPHORUS 2.7 mg/dL (2.5-4.9); POTASSIUM 3.6 mmol/L (3.5-5.1); TOTAL PROTEIN, SERUM 5.6 g/dL (6.4-8.2)
[2019-10-17] MEDS ORDERED: [UNRECOGNIZED DRUG - OTHER] PO SCH (07:30)
--- NOTE | 2019-10-17 07:30 | NUR ---
RN CLOSING NOTES PT RESTING COMFORTABLY IN BED. A/OX4. REMAINS ON ROOM AIR, BREATHING EVEN AND UNLABORED. WITH SOB ON EXERTION. NO C/O PAIN AT THIS TIME. IN NO ACUTE DISTRESS. NO SIGNIFICANT CHANGES OVERNIGHT. HOB ELEVATED. IV TO RIGHT WRIST PATENT AND INTACT RUNNING IVF ORDERED. PAN PUSHER SHOWING SINUS TACH 109. ALL NEEDS MET. ENDORSED TO ONCOMING SHIFT.
--- NOTE | 2019-10-17 08:00 | NUR ---
tele master automotive technician: initial assessment received pt in bed awake, a/ox4. no c/o sob or any discomfort. instructed to call for assistance. will continue to monitor. Addendum: 10/17/19 at 1757 by SCOTT TYSONN iv fluids not connected, refused to be connected.
[2019-10-17 08:29] LABS: LYMPHOCYTES % (MANUAL) 5 % (16-48); MONOCYTES % (MANUAL) 6 % (0-11.0); NEUTROPHILS % (MANUAL) 89 (42-76)
[2019-10-17] MEDS: LIPASE/PROTEASE/AMYLASE 1 EACH CAPSULE.DR PO SCH ×3 (08:51→17:07)
[2019-10-17] MEDS: SERTRALINE HCL 25 MG TABLET PO SCH (08:51)
[2019-10-17] MEDS: AMLODIPINE BESYLATE 5 MG TABLET PO SCH (08:51)
[2019-10-17] MEDS: PANTOPRAZOLE 40 MG TABLET.DR PO SCH (08:52)
[2019-10-17] MEDS: SALINE NASAL SPRAY 0.65% 1 BOTTLE BOTTLE NS SCH ×2 (08:52→17:08)
[2019-10-17] MEDS: HYDROCODONE/APAP 5/325MG 1 EACH TABLET PO PRN (08:52)
[2019-10-17] MEDS: DEXAMETHASONE 4 MG TABLET GT SCH ×2 (08:52→17:07)
[2019-10-17] MEDS: LEVETIRACETAM (250 MG) 250 MG TABLET PO SCH ×2 (08:52→22:05)
--- NOTE | 2019-10-17 09:58 | NUR ---
tele liner roll changer: md visit seen and examined by howard (acnp) at this time. per search marketing analyst, dr. olmstead and dr. conroy to see pt. pt aware. instructed to call for assistance.
--- NOTE | 2019-10-17 10:30 | NUR ---
tele bottom buffer: pulmo consult seen by dr. conroy with new orders. orders acknowledged.
[2019-10-17] MEDS: ALBUTEROL HALF STRENGTH 1.25 MG/3 ML VIAL.NEB NEB SCH ×4 (11:27→23:37)
[2019-10-17] MEDS: IPRATROPIUM NEB FS 0.5 MG/2.5 ML AMPUL.NEB NEB SCH ×4 (11:28→23:37)
--- NOTE | 2019-10-17 12:00 | NUR ---
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 hob elevated. instructed to call for assistance.
--- NOTE | 2019-10-17 14:00 | NUR ---
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
[2019-10-17 16:00] VITALS: BP 129/76
--- NOTE | 2019-10-17 17:00 | NUR ---
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 hob elevated. no c/o sob or any discomfort. instructed to call for assistance. will continue to monitor.
[2019-10-17] MEDS: RIVAROXABAN 10 MG TABLET PO SCH (17:09)
--- NOTE | 2019-10-17 17:55 | NUR ---
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 orders acknowledged.
--- NOTE | 2019-10-17 19:11 | NUR ---
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
--- NOTE | 2019-10-17 19:21 | NUR ---
MS RN: RECEIVED PATIENT Patient in bed, awake, A/O x4. Tolerating room air, denies shortness of breath. Right wrist IV line, patient refusing IVF infusion per DEMAR Galvan. Left chest Pleurx catheter clamp, covered with dry gauze and Mepilex foam, denies pain. Fall precaution maintained.
[2019-10-17 20:00] VITALS: BP 136/85
[2019-10-17 20:20] VITALS: BP 136/85
[2019-10-17] MEDS: ATORVASTATIN 10 MG TABLET PO SCH (22:05)
[2019-10-17] MEDS: TAMSULOSIN 0.4 MG CAP.SR.24H PO SCH (22:05)
--- NOTE | 2019-10-18 01:12 | NUR ---
MS RN: NEW IV PERIPHERAL LINE Right wrist IV peripheral line dislodged, re inserted new peripheral line in Right hand with good blood returned. Patient still refusing IVF despite education, per patient to restart IVF in the morning so it does not bother his sleep throughout the night.
[2019-10-18] MEDS: IPRATROPIUM NEB FS 0.5 MG/2.5 ML AMPUL.NEB NEB SCH ×6 (02:36→23:56)
[2019-10-18] MEDS: ALBUTEROL HALF STRENGTH 1.25 MG/3 ML VIAL.NEB NEB SCH ×6 (02:36→23:56)
--- NOTE | 2019-10-18 06:37 | NUR ---
MS RN: END OF SHIFT REPORT Patient in bed. Adequate sleep last night. O2 sat in Mid 90's on O2 2L via NC, denies shortness of breath at rest and with exertion. Left lateral chest Pleurx cath intact, gauze in place, denies pain, afebrile overnight. IVF not infusing, declined education. Fall precaution maintained.
[2019-10-18] MEDS: PANTOPRAZOLE 40 MG TABLET.DR PO SCH (07:30)
--- NOTE | 2019-10-18 07:48 | NUR ---
MS RN OPENING NOTES RECEIVED PATIENT IN BED, AWAKE, A/O X4. PATIENT IS ON OXYGEN THERAPY AT 2 LPM; BREATHING IS EVEN AND UNLABORED, NO SOB PRESENT AT THIS TIME. COMPLAINING OF MILD BACK PAIN. R HAND G#22 PRESENT AND INTACT AND FLUSHING WELL; AT THIS POINT REFUSES IV HYDRATION STATING HE DRINKS WATER. SAFETY PRECAUTIONS IN PLACE; BED IN LOW POSITION AND LOCKED, RAILS UP X2, CALL LIGHT WITHIN REACH. WILL CONTINUE TO MONITOR PATIENT.
[2019-10-18 08:00] VITALS: BP 131/85
[2019-10-18 08:18] LABS: HEMATOCRIT 41 % (39-51); HEMOGLOBIN 13.6 g/dL (13.5-17.5); LYMPHOCYTES # (AUTO) 0.5 /CMM (0.8-4.8); LYMPHOCYTES % (AUTO) 4.1 % (20.0-44.0); MEAN CORPUSCULAR HGB CONC 33 g/dl (31.0-36.0); MEAN CORPUSCULAR VOLUME 91 fL (80-96); MONOCYTES # (AUTO) 0.6 /CMM (0.1-1.30); MONOCYTES % (AUTO) 4.7 % (2.0-12.0); NEUTROPHILS # (AUTO) 12.1 /CMM (1.8-8.9); NEUTROPHILS % (AUTO) 91.2 % (43.0-81.0); PLATELET COUNT (AUTO) 156 /CMM (150-450); RED BLOOD CELL COUNT(AUTO) 4.48 MIL/uL (4.5-6.0); WHITE BLOOD COUNT (AUTO) 13.3 K/uL (4.3-11.0)
[2019-10-18 08:34] LABS: CALCIUM, SERUM 7.1 mg/dL (8.5-10.1); CREATININE 0.7 mg/dL (0.6-1.3); POTASSIUM 3.8 mmol/L (3.5-5.1)
[2019-10-18] MEDS: LIPASE/PROTEASE/AMYLASE 1 EACH CAPSULE.DR PO SCH ×3 (08:44→17:04)
[2019-10-18] MEDS: DEXAMETHASONE 4 MG TABLET GT SCH ×2 (08:44→17:04)
[2019-10-18] MEDS: HYDROCODONE/APAP 5/325MG 1 EACH TABLET PO PRN (08:44)
[2019-10-18] MEDS: SERTRALINE HCL 25 MG TABLET PO SCH (08:44)
[2019-10-18] MEDS: SALINE NASAL SPRAY 0.65% 1 BOTTLE BOTTLE NS SCH ×2 (08:45→17:11)
[2019-10-18] MEDS: AMLODIPINE BESYLATE 5 MG TABLET PO SCH (08:45)
[2019-10-18] MEDS: LEVETIRACETAM (250 MG) 250 MG TABLET PO SCH ×2 (08:45→21:37)
--- NOTE | 2019-10-18 15:09 | NUR ---
RT NOTES UNABLE TO ADMINISTER 1130 TX DUE TO RAPID RESPONSE AND CODE BLUE IN ICU. NO RESPIRATORY DISTRESS NOTED.
[2019-10-18] MEDS: RIVAROXABAN 10 MG TABLET PO SCH (17:07)
--- NOTE | 2019-10-18 19:27 | NUR ---
MS RN CLOSING NOTES PATIENT IN BED, AWAKE, A/O X4. PATIENT IS ON OXYGEN THERAPY AT 2 LPM; BREATHING IS EVEN AND UNLABORED, NO SOB PRESENT AT THIS TIME. . NO COMPLAINS OF PAIN AT THIS MOMENT. R HAND G#22 PRESENT AND INTACT AND FLUSHING WELL. ALL NEEDS ATTENDED TO DURING SHIFT. SAFETY PRECAUTIONS IN PLACE; BED IN LOW POSITION AND LOCKED, RAILS UP X2, CALL LIGHT WITHIN REACH. WILL ENDORSE TO RESEARCH ANIMAL ATTENDANT NURSE.
--- NOTE | 2019-10-18 19:30 | NUR ---
MS/RN OPENING NOTES: RECEIVED PATIENT IN BED, AWAKE, A/O X4. PATIENT IS ON OXYGEN THERAPY AT 2 LPM; BREATHING IS EVEN AND UNLABORED, NO SOB PRESENT AT THIS TIME. R HAND G#22 PRESENT AND INTACT AND FLUSHING WELL; AT THIS POINT REFUSES IV HYDRATION BECAUSE HE DRINKS WATER. SAFETY PRECAUTIONS IN PLACE; BED IN LOW POSITION AND LOCKED, RAILS UP X2, CALL LIGHT WITHIN REACH. WILL CONTINUE TO MONITOR PATIENT.
[2019-10-18 20:00] VITALS: BP 144/85
[2019-10-18] MEDS: ATORVASTATIN 10 MG TABLET PO SCH (21:37)
[2019-10-18] MEDS: TAMSULOSIN 0.4 MG CAP.SR.24H PO SCH (21:37)
[2019-10-19] MEDS: HYDROCODONE/APAP 5/325MG 1 EACH TABLET PO PRN ×2 (02:23→17:50)
[2019-10-19] MEDS: ALBUTEROL HALF STRENGTH 1.25 MG/3 ML VIAL.NEB NEB SCH ×5 (03:30→19:30)
[2019-10-19] MEDS: IPRATROPIUM NEB FS 0.5 MG/2.5 ML AMPUL.NEB NEB SCH ×5 (03:30→19:30)
--- NOTE | 2019-10-19 06:27 | NUR ---
MS/RN NOTES: PT REFUSED BLOOD DRAW FROM. LAB, PER PT "COME BACK AFTER MY BREAKFAST".
--- NOTE | 2019-10-19 07:33 | NUR ---
MS/RN CLOSING NOTES: PATIENT IN BED, AWAKE, A/O X4. PATIENT IS ON OXYGEN THERAPY AT 2 LPM; BREATHING IS EVEN AND UNLABORED, NO SOB PRESENT AT THIS TIME. NO COMPLAINS OF PAIN AT THIS MOMENT. R HAND G#22 PRESENT AND INTACT AND FLUSHING WELL. ALL NEEDS ATTENDED TO DURING SHIFT. ALL DUE MEDS GIVEN ORDERED, ALL NEEDS MET AND RENDERED. SAFETY PRECAUTIONS IN PLACE; BED IN LOW POSITION AND LOCKED, RAILS UP X2, CALL LIGHT WITHIN REACH. WILL ENDORSE TO DAY SHIFT NURSE.
--- NOTE | 2019-10-19 07:40 | NUR ---
MS RN NOTES RECEIVED PT IN BED, ASLEEP. EASILY AROUSED, A/O X4. PT TOLERATING RA, WITH NO ACUTE RESPIRATORY DISTRESS NOTED. PT NO EXHIBITING ANY PAIN OR DISCOMFORT AT THIS TIME. PT ALSO DENIES ANY CONCERNS OF QUESTIONS. PIV TO R HAND G22, FLUSHED WITH NS, INTACT AND OPERATIONAL, PER PT REFUSED FOR IVF TO BE PLUGGED ON HIM. PT KEPT COMFORTABLE. CALL LIGHT KEPT WITHIN REACH. PT'S BED IN LOWEST, LOCKED POSITION, WITH SR X3. WILL CONTINUE PLAN OF CARE.
[2019-10-19 08:00] VITALS: BP 146/82
[2019-10-19 09:01] LABS: BASOPHILS % (AUTO) 0.2 % (0.0-2.0); HEMATOCRIT 43 % (39-51); HEMOGLOBIN 13.9 g/dL (13.5-17.5); LYMPHOCYTES # (AUTO) 0.6 /CMM (0.8-4.8); LYMPHOCYTES % (AUTO) 3.5 % (20.0-44.0); MEAN CORPUSCULAR HGB CONC 33 g/dl (31.0-36.0); MEAN CORPUSCULAR VOLUME 91 fL (80-96); MONOCYTES # (AUTO) 1.1 /CMM (0.1-1.30); MONOCYTES % (AUTO) 6.5 % (2.0-12.0); NEUTROPHILS # (AUTO) 15.3 /CMM (1.8-8.9); NEUTROPHILS % (AUTO) 89.8 % (43.0-81.0); PLATELET COUNT (AUTO) 242 /CMM (150-450); RED BLOOD CELL COUNT(AUTO) 4.67 MIL/uL (4.5-6.0)
[2019-10-19] MEDS: SERTRALINE HCL 25 MG TABLET PO SCH (09:02)
[2019-10-19] MEDS: AMLODIPINE BESYLATE 5 MG TABLET PO SCH (09:02)
[2019-10-19] MEDS: LIPASE/PROTEASE/AMYLASE 1 EACH CAPSULE.DR PO SCH ×3 (09:02→17:40)
[2019-10-19] MEDS: DEXAMETHASONE 4 MG TABLET GT SCH ×2 (09:03→17:40)
[2019-10-19] MEDS: PANTOPRAZOLE 40 MG TABLET.DR PO SCH (09:03)
[2019-10-19] MEDS: LEVETIRACETAM (250 MG) 250 MG TABLET PO SCH (09:03)
[2019-10-19] MEDS: SALINE NASAL SPRAY 0.65% 1 BOTTLE BOTTLE NS SCH ×2 (09:09→17:40)
[2019-10-19 09:18] LABS: CALCIUM, SERUM 8.2 mg/dL (8.5-10.1); CREATININE 0.8 mg/dL (0.6-1.3); MAGNESIUM 2.1 mg/dL (1.8-2.4); PHOSPHORUS 3.2 mg/dL (2.5-4.9); POTASSIUM 3.9 mmol/L (3.5-5.1)
[2019-10-19] MEDS ORDERED: POLYVINYL ALCOHOL 15 ML BOTTLE RIGHTEYE PRN (11:30)
[2019-10-19] MEDS: POLYVINYL ALCOHOL 15 ML BOTTLE RIGHTEYE SCH ×2 (12:42→17:40)
--- NOTE | 2019-10-19 14:10 | NUR ---
MS RN NOTES EMPTIED PT'S PLEURX, 50 ML YELLOWISH OUTPUT DRAINED. PT AWARE. WILL CONTINUE TO MONITOR.
[2019-10-19 16:13] VITALS: BP 169/99
[2019-10-19] MEDS: RIVAROXABAN 10 MG TABLET PO SCH (17:41)
--- NOTE | 2019-10-19 18:59 | NUR ---
MS RN NOTES PT REMAINS IN BED, AWAKE, A/O X4. PT TOLERATING RA, WITH NO ACUTE RESPIRATORY DISTRESS NOTED. PT NO EXHIBITING ANY PAIN OR DISCOMFORT AT THIS TIME. PT ALSO DENIES ANY CONCERNS OF QUESTIONS. PIV TO R HAND G22, FLUSHED WITH NS, INTACT AND OPERATIONAL. PT KEPT COMFORTABLE. ALL NEEDS AND CARE ATTENDED. CALL LIGHT KEPT WITHIN REACH. PT'S BED IN LOWEST, LOCKED POSITION, WITH SR X3. WILL ENDORSE TO INCOMING NIGHT NURSE FOR ANISA.
--- NOTE | 2019-10-19 19:11 | NUR ---
MS RN NOTES PT INSISTING TO REMOVE PIV TO RIGHT HAND NOW, STATING HE WANTS TO GET DRESSED BEFORE 8PM, WIRE SAW OPERATOR FOR DISCHARGE. RN EXPLAINED UNIT PROTOCOL ABOUT REMOVING PIV AT THE ACTUAL TIME OF DISCHARGE. PT STILL INSIST AND WANTED TO REMOVE PIV. CHARGE NURSE MADE AWARE WELL. WILL ENDORSE TO INCOMING NIGHT NURSE WELL.
--- NOTE | 2019-10-19 19:45 | NUR ---
ms documentation coordinator notes pt awake and alert ready for discharge tonight and pt aware as well but seem upset; no signs of any discomfort or any distress noted. spoke to him regarding his belonging if we can check and vital signs and if we can take photo of his skin but pt still refusing. aware where he's going . kept him comfortable at all times. i told him that will pick him up around 8pm. will continue monitoring.
--- NOTE | 2019-10-19 20:30 | NUR ---
ms jerardo closing notes ambulance came to [place] supervisor the patient and pt awake and sitting in his aware that he's living. talked to him again if I can check his vital signs and he's agreed to it but his face noticed him that his upset. no signs of any distress or any discomfort noted. vital signs taken as FF. BP 169/69, heart rate 82, resp 20 temp 97.4. gave report to the manager of procurement and hand held the copy of pt record. and belongings as well.
== END 2019-10-19 20:20 | DRG 193 ==
LOC: ER 14:45 → TELE 16:47 → MED 10-17 10:24
PROVIDERS: ADMIT Nurse Practitioner Acute Care; ATTEND Student in an Organized Health Care Education/Training Program
DX: J15.9 Unspecified bacterial pneumonia (principal); J80 Acute respiratory distress syndrome; C34.90 Malignant neoplasm of unspecified part of unspecified bronchus or lung; E44.0 Moderate protein-calorie malnutrition; N17.9 Acute kidney failure, unspecified; J98.11 Atelectasis; C79.31 Secondary malignant neoplasm of brain; J91.0 Malignant pleural effusion; E86.0 Dehydration; I10 Essential (primary) hypertension; K21.9 Gastro-esophageal reflux disease without esophagitis; G51.0 Bell's palsy; Z86.718 Personal history of other venous thrombosis and embolism; Z59.0 Homelessness; D69.6 Thrombocytopenia, unspecified; E78.5 Hyperlipidemia, unspecified; G89.3 Neoplasm related pain (acute) (chronic); K59.00 Constipation, unspecified; N40.0 Benign prostatic hyperplasia without lower urinary tract symptoms; Z79.01 Long term (current) use of anticoagulants; Z79.899 Other long term (current) drug therapy; Z87.891 Personal history of nicotine dependence
CPT/HCPCS: 36415; 71045-TC; 80048-TC; 80053-TC; 80076-TC; 83735-TC; 84100-TC; 84484-TC; 85025-TC; 87081-TC; 94760-TC; 94799-TC; G0378; J0456; J0696; J7030; J7060; J8540